=== PATIENT | female | born 1965 | race Caucasian/White ===

== ENCOUNTER 2017-09-20 13:31 | Outpatient (CLI) | payer OTHER | END 2017-09-20 13:32 | disposition home or self-care (01) | LOC: BICMAMMO 13:31 | PROVIDERS: ATTEND Internal Medicine Hematology & Oncology | DX: C50.811 Malignant neoplasm of overlapping sites of right female breast (principal); N64.89 Other specified disorders of breast | CPT/HCPCS: 77066; G0279 ==

== ENCOUNTER 2017-09-23 14:31 | Observation (INO) | payer OTHER ==
[2017-09-23 15:24] LABS: Anion Gap 15 mmol/L (10-20); BUN (Urea Nitrogen) 25 mg/dL (9.8-20.1); Calc. Creatinine Clearance 0 mL/min (70-130); Calcium 8.6 mg/dL (7.8-10.44); Carbon Dioxide 21 mmol/L (22-29); Chloride 105 mmol/L (98-107); Estimated GFR-MDRD 41; Glucose 111 mg/dL (70-105); Potassium 3.8 mmol/L (3.5-5.1); Sodium 137 mmol/L (136-145)
--- NOTE | 2017-09-23 15:29 | PDOC.FPRHP ---
- History of Present Illness Chief Complaint: symptomatic anemia, syncope History of Present Illness: Radha Ascencio is a 52 year old F with a PMH of recently diagnosed breast cancer approximately two weeks ago with lesions in spine and pelvis, Type 2 DM, HTN, HLD who presents as transfer for [place] ED for symptomatic anemia and GI bleeding. Patient had a witnessed episode of syncope today while in [employer], episode witnessed by . No post-ictal state, seizure like activity. Patient had a syncopal episode in august as well. At that time she was found to be anemia. Patient has no family history of colon cancer. For the last month, pt has been having increased fatigue with any exertion. She states that her BMs have been dark but not black. She denies any lamonte blood in her stool or any other bleeding. In [place], Hemoglobin was 7.4 and she was started on 1 U pRBC transfusion and transferred to here. ED Course: In the ED, the patient received protonix and 1 L of NS. Received 1U pRBC at outside facility. - Allergies/Adverse Reactions Allergies Allergy/AdvReac Type Severity Reaction Status Date / Time No Known Allergies Allergy Verified 09/23/17 16:32 - Home Medications Medication Instructions Recorded Confirmed Type Olmesartan/Hydrochlorothiazide 1 tablet PO DAILY 09/23/17 09/23/17 History [Benicar HCT] Rosuvastatin [Crestor] 20 mg PO HS 09/23/17 09/23/17 History metFORMIN HCl [Metformin HCl] 500 mg PO DAILY 09/23/17 09/23/17 History traMADol HCl [Tramadol HCl] 50 mg PO QID PRN 09/23/17 09/23/17 History - History PMHx: T2DM, HTN, HLD PSHx: Hysterectomy, Lumpectomy for fibrocystic disease of right breast FHx: HTN, TX in father Social: Denies alcohol, drug, smoking - Review of Systems General: reports: weight/appetite/sleep changes, fatigue. denies: fever/chills , night sweats Eyes: denies: eye pain, vision changes ENT: denies: nasal congestion, rhinorrhea Respiratory: reports: exercise intolerance. denies: cough, congestion, shortness of breath Cardiovascular: denies: chest pain, palpitation, edema, paroxysmal nocturnal dyspnea, orthopnea Gastrointestinal: reports: abdominal pain, GI bleeding. denies: nausea, vomiting, diarrhea, constipation Genitourinary: denies: incontinence, dysuria, polyuria Skin: denies: rashes, lesions, jaundice Musculoskeletal: denies: pain, tenderness, stiffness Neurological: reports: syncope. denies: numbness, seizure, weakness Psychological: denies: anxiety, depression - Vital signs BP: 142/82 HR: 71 RR: 18 Tmax: 98.2 Pox: 99% on RA Wt: 104 kg - Physical Exam Constitutional: NAD, awake, alert and oriented, well developed HEENT: normocephalic and atraumatic, PERRLA, EOMI, conjunctiva clear, no scleral icterus -HEENT: pale conjunctiva Neck: supple, FROM, trachea midline, no LAD, no JVD Chest: no-tender to palpation, no lesions Heart: RRR, normal S1/S2, no murmurs/rubs/gallops, no edema Lungs: CTAB, no respiratory distress, good air movement, no wheezing Abdomen: soft, non-tender, bowel sounds present, no masses/distention Musculoskeletal: normal structure, normal tone, ROM grossly normal Neurological: no focal deficit, CN II-XII intact, normal sensation Skin: no rash/lesions, good turgor, capillary refill <2 seconds Heme/Lymphatic: no unusual bruising or bleeding, no purpura, no petechia Psychiatric: normal mood and affect, good judgment and insight, intact recent and remote memory FMR H&P: Results - Labs Result Diagrams: 09/23/17 20:44 09/23/17 14:53 Lab results: Sodium 137 mmol/L (136-145) 09/23/17 14:53 Potassium 3.8 mmol/L (3.5-5.1) 09/23/17 14:53 Chloride 105 mmol/L (98-107) 09/23/17 14:53 Carbon Dioxide 21 mmol/L (22-29) L 09/23/17 14:53 BUN 25 mg/dL (9.8-20.1) H 09/23/17 14:53 Creatinine 1.36 mg/dL (0.6-1.1) H 09/23/17 14:53 Glucose 111 mg/dL (70-105) H 09/23/17 14:53 Calcium 8.6 mg/dL (7.8-10.44) 09/23/17 14:53 FMR H&P: A/P - Problem List (1) Chronic GI bleeding Current Visit: Yes Status: Acute Code(s): K92.2 - GASTROINTESTINAL HEMORRHAGE, UNSPECIFIED (2) Symptomatic anemia Current Visit: Yes Status: Acute Code(s): D64.9 - ANEMIA, UNSPECIFIED (3) HTN (hypertension) Current Visit: Yes Status: Acute Code(s): I10 - ESSENTIAL (PRIMARY) HYPERTENSION (4) Diabetes mellitus Current Visit: Yes Status: Acute Code(s): E11.9 - TYPE 2 DIABETES MELLITUS WITHOUT COMPLICATIONS (5) Hyperlipidemia Current Visit: Yes Status: Acute Code(s): E78.5 - HYPERLIPIDEMIA, UNSPECIFIED (6) Breast cancer Current Visit: Yes Status: Acute - Plan 1) Symptomatic Anemia: - Admit to Tele. Patient has history of syncopal episodes. Fall precautions. - S/p 1 U pRBC transfusion, trend H&H q2h until stable. Consult GI. Protonix BID daily. - IVFs, NS @ 145 ml/hr - Holding anticoagulation 2) GI bleed: - Likely chronic - FOBT + - See above 3) DM2: - Hold metformin 2/2 to GLADYS. Sliding scale insulin, accuchecks. 4) GLADYS: vs CKD - IVFs, continue to monitor 5) HTN: - Home meds 6) Hx of breast cancer-diagnosed 2 weeks ago. Will courtesy call Dr. Carrillo's office in the AM. PRN morphine for pain 7) History of syncope: - EKG showed NSR, monitor on tele. 8) CODE STATUS: FULL CODE Disposition/LOS: Admit to Tele, Likely hospital stay 2-3 days. FMR H&P: Upper Level - Plan Date/Time: 09/23/17 1529 Sherley Marshall, PGY3, have evaluated this patient and agree with findings/plan as outlined by legal internship resident. Pertinent changes/additions are listed here. This is a 52yo WF who recently was diagnosed with breast CA w/ possible lesions on spine and pelvis, about 2 weeks, anemia, HTN, HLD, DM2 ago transferred here from [facility] for symptomatic anemia and GI bleed, who initially presented w/ syncope that happened at [employer] today, witnessed by . Unsure how long she was out for. This happened once in August when she was anemic at that time as well. She states that her stools have been darker than normal for the past month, and has noticed that she's progressively been more fatigued, even with routine tasks. She was given Protonix, 1L NS and 1U PRBC in the outside facility. PE: Gen: AOx4 in no acute distress. HEENT: pale conjunctiva, EOMI, no cervical lymphadenopathy CV: RRR. + 2/5 systolic murmur. Resp: CTA bilaterally, no retractions Abd: Soft, non-tender to palpation Skin: Pale, dry, warm A/P: 1) Symptomatic Anemia - trend H&H Q2hr until stable. Consult GI. Protonix BID daily, Maintenance fluids. Will keep patient NPO. Will transfuse if symptomatic and Hg <8 or asymptomatic with Hg < 7. Hold anticoagulation due to bleed. 2) GI Bleed - Same as #1. 3) DM2 - Hold metformin as patient has GLADYS. ISS. Accuchecks 4) HTN - continue home medication. 5) Recent diagnosis of breast Cancer - Will give a courtesy call to Dr. Carrillo' s office in the morning. Morphine PRN pain. 6) Pancytopneia - Likely 2/2 #5. F/u with CBC in am. 7) Syncope - EKG NSR. Will monitor on telemetry. Likely 2/2 #1. 8) GLADYS vs CKD - will f/u with BMP in am after fluids. Avoid nephrotoxic medication Attending Addendum - Attending Addendum Date/Time: 09/23/17 [id number] I personally evaluated the patient and discussed the management with Dr. Rojo. I agree with the History, Examination, Assessment and Plan documented above with any addition or exceptions noted below- Briefly this ia 52 yo WF with h/o HTN, prediabetes and recently diagnosed breast cancer presented after a syncopal episode at [facility]. Evaluated in [facility] and found to be guiac positive and anemic and was transferred for GI bleed. Patient denies any abdominal pain, N/V, melena or hematochezia. Hgb=7.4 transfused 1 u pRBCs. Patient had similar episode in August. Was found to be anemic but did not require any blood and was in the process of an evaluation to include a colonoscopy when the breast cancer was discovered and the evaluation was put on hold. PMH/PSH/Meds/ All/SH reviewed and agree with resident's documentation. Afebrile VSS Physcial exam repeated by me and agree with resident's findings. Labs Hgb= 8.4 plt 82 MCV 93. A/P: 1) Syncope secondary to symptomatic anemia- continue to monitor. Ambulate with assistance. 2) Anemia- probable GI source- serial H/Hs. Plan to consult GI. Continue PPI. 3) Breast cancer- will notify pt' s oncologist of her admission.
[2017-09-23] MEDS ORDERED: Acetaminophen 325 MG TAB PO PRN (15:46)
[2017-09-23] MEDS ORDERED: Ondansetron HCl/PF 4 MG/2 ML Vial IVP PRN (15:46)
[2017-09-23 15:47] LABS: Anisocytosis SLIGHT = 6-15 cells (100X) (0-5/hpf); Band 3 % (5-11); Hemoglobin 8.1 g/dL (12.0-16.0); Lymphocytes 39 % (21-51); MDiff Complete? YES; Mean Corpuscular HGB CONC 34.2 g/dL (32.0-36.0); Mean Corpuscular Hemoglobin 31.7 pg (27.0-31.0); Mean Corpuscular Volume 92.9 fl (81.0-99.0); Mean Platelet Volume 8.6 fL (7.4-10.4); Monocytes 4 % (0-10); Neutrophil 53 % (42-75); PLT Morphology Comment Appears Decreased; Platelet Count 87 thou/uL (130-400); RBC Distribution Width 15.5 % (11.5-14.5); Red Blood Cell (RBC) Count 2.56 mill/uL (4.20-5.40); White Blood Cell (WBC) Count 4.1 thou/uL (4.8-10.8)
[2017-09-23 16:18] VITALS: BMI 39.9
[2017-09-23] MEDS: Sodium Chloride 0.9% 1,000 ML IV SCH ×2 (16:30→23:38)
[2017-09-23] MEDS ORDERED: Morphine 4 MG/ML VIAL SLOW IVP PRN (16:39)
[2017-09-23] MEDS ORDERED: Labetalol HCl 100 MG/20 ML VIAL SLOW IVP PRN (16:58)
[2017-09-23 17:29] LABS: Hemoglobin 8.9 g/dL (12.0-16.0); Platelet Count 85 thou/uL (130-400)
[2017-09-23 18:27] LABS: INR-International Normal Ratio 1.1; PTT 26.4 SEC (22.9-36.1); Prothrombin Time 14.6 SEC (12.0-14.7)
[2017-09-23] MEDS: Pantoprazole 40 MG VIAL IVP SCH (20:46)
[2017-09-23 21:00] LABS: Hemoglobin 8.4 g/dL (12.0-16.0); Platelet Count 82 thou/uL (130-400)
[2017-09-24 05:45] LABS: Anion Gap 13 mmol/L (10-20); BUN (Urea Nitrogen) 16 mg/dL (9.8-20.1); Calc. Creatinine Clearance 96 mL/min (70-130); Carbon Dioxide 22 mmol/L (22-29); Chloride 106 mmol/L (98-107); Estimated GFR-MDRD 51; Glucose 92 mg/dL (70-105); Potassium 3.1 mmol/L (3.5-5.1); Sodium 138 mmol/L (136-145)
[2017-09-24] MEDS: Sodium Chloride 0.9% 1,000 ML IV SCH ×2 (05:53→13:25)
[2017-09-24 06:06] LABS: #Basophils 0.1 thou/uL (0.0-0.2); #Eosinphils 0.1 thou/uL (0.0-0.7); #Lymphocytes 1.5 thou/uL (1.20-3.40); #Monocytes 0.6 thou/uL (0.11-0.59); #Neutrophils 2.2 thou/uL (1.40-6.50); %Basophils 1.5 % (0.0-1.0); %Eosinophils 2.8 % (0.0-10.0); %Lymphocytes 33.2 % (21.0-51.0); %Monocytes 12.4 % (0.0-10.0); Anisocytosis SLIGHT = 6-15 cells (100X) (0-5/hpf); MDiff Complete? YES; Mean Corpuscular HGB CONC 35.8 g/dL (32.0-36.0); Mean Corpuscular Hemoglobin 33.3 pg (27.0-31.0); Mean Corpuscular Volume 93.2 fl (81.0-99.0); Mean Platelet Volume 8.8 fL (7.4-10.4); Platelet Count 83 thou/uL (130-400); Polychromasia SLIGHT = 2-3 cells (100X) (0-2/hpf); RBC Distribution Width 15.7 % (11.5-14.5); Tear Drops SLIGHT = 2-5 cells (100X) (0-1/hpf); White Blood Cell (WBC) Count 4.4 thou/uL (4.8-10.8)
[2017-09-24] MEDS ORDERED: Pantoprazole 40 MG VIAL IVP SCH (09:00)
[2017-09-24] MEDS: Pantoprazole 40 MG VIAL IVP SCH ×2 (09:13→21:08)
--- NOTE | 2017-09-24 09:23 | PDOC.FM ---
- Subjective Subjective: Pt reports doing well this morning. Denies any dizziness, lightheadness or headaches. Has gotten up and went to the bathroom multiple times and had no problems. Pt denies any fever or chills. Denies any acute events overnight. Concerned because she had an appointment with Dr. Carrillo for breast cancer today. No chest pain. Pt reports last BM was yesterday and only ate cheerios. - Objective MAR Reviewed: Yes Vital Signs & Weight: Vital Signs (12 hours) Temp Pulse Resp BP Pulse Ox 09/24/17 07:31 98.2 F 75 18 122/64 99 09/24/17 03:53 98.2 F 74 18 128/69 98 Weight Weight 105.506 kg I&O: 09/23/17 09/24/17 09/25/17 06:59 06:59 06:59 Intake Total 2201 Output Total 1400 Balance 801 Result Diagrams: 09/24/17 04:29 09/24/17 04:29 EKG Reviewed by me: Yes Phys Exam - Physical Examination Constitutional: NAD HEENT: PERRLA, moist MMs, sclera anicteric Neck: no nodes, no JVD, supple, full ROM Respiratory: no wheezing, no rales, no rhonchi, clear to auscultation bilateral Cardiovascular: RRR, no rub systolic murmur noted Gastrointestinal: soft, non-tender, no distention, positive bowel sounds Musculoskeletal: no edema, pulses present Neurological: non-focal, normal sensation, moves all 4 limbs Lymphatic: no nodes Psychiatric: normal affect, A&O x 3 Skin: no rash, normal turgor, cap refill <2 seconds Dx/Plan (1) Breast cancer Status: Acute (2) Chronic GI bleeding Code(s): K92.2 - GASTROINTESTINAL HEMORRHAGE, UNSPECIFIED Status: Acute (3) Diabetes mellitus Code(s): E11.9 - TYPE 2 DIABETES MELLITUS WITHOUT COMPLICATIONS Status: Acute (4) HTN (hypertension) Code(s): I10 - ESSENTIAL (PRIMARY) HYPERTENSION Status: Acute (5) Hyperlipidemia Code(s): E78.5 - HYPERLIPIDEMIA, UNSPECIFIED Status: Acute (6) Symptomatic anemia Code(s): D64.9 - ANEMIA, UNSPECIFIED Status: Acute - Plan Plan: 1) Symptomatic Anemia likely 2/2 GI bleed Patient has history of syncopal episodes. Fall precautions. - S/p 1 U pRBC transfusion yesterday. Will check Hemagram later today . Consult GI- Dr. Fairchild- will follow recs . Protonix BID daily. - IVFs, NS @ 145 ml/hr. NPO at this time - Holding anticoagulation 2) GI bleed: - Likely chronic - FOBT + - See above 3) DM2: - Hold metformin 2/2 to GLADYS. Sliding scale insulin, accuchecks. 4) GLADYS: vs CKD - IVFs, continue to monitor -Likely 2/2 to volume loss from blood laoss 5) HTN: - Home meds 6) Hx of breast cancer-diagnosed 2 weeks ago. Consult Oncology- Dr. Carrillo- Will follow recs PRN morphine for pain 7) History of syncope: - EKG showed NSR, monitor on tele.
--- NOTE | 2017-09-24 12:14 | ADD-HP ---
DATE OF SERVICE: 09/24/2017 This is an addendum to the note of Dr. Cheikh Austin. HISTORY OF PRESENT ILLNESS: Ms. Thacker is a pleasant 52-year-old white female patient who unfortunate ly was found recently to have metastatic breast cancer. She had a syncopal episode yesterday while a t [employer] and was found to have a hemoglobin level of 7.4. She does give a history of either very mehnaz k stools or black tarry stools. She was admitted and transfused 1 unit of packed red blood cells wit h a hemoglobin this morning of 8.0. We will continue to monitor her closely and we have already consulted GI. She will likely need at le ast an upper GI endoscopy and possibly later a colonoscopy given her anemia and symptoms, although th silver could be at least in part due to her metastatic disease.
[2017-09-24] MEDS ORDERED: Potassium Chloride 40 MEQ in Sodium Chloride 0.9% 250 ML 250 ML IVPB SCH (12:30)
[2017-09-24 13:38] LABS: Anisocytosis SLIGHT = 6-15 cells (100X) (0-5/hpf); Band 9 % (5-11); Hemoglobin 7.7 g/dL (12.0-16.0); Lymphocytes 11 % (21-51); MDiff Complete? YES; Mean Corpuscular HGB CONC 34.4 g/dL (32.0-36.0); Mean Corpuscular Hemoglobin 30.8 pg (27.0-31.0); Mean Corpuscular Volume 89.4 fl (81.0-99.0); Mean Platelet Volume 8.3 fL (7.4-10.4); Monocytes 6 % (0-10); Neutrophil 70 % (42-75); PLT Morphology Comment Appears Decreased; Platelet Count 81 thou/uL (130-400); Polychromasia SLIGHT = 2-3 cells (100X) (0-2/hpf); RBC Distribution Width 15.6 % (11.5-14.5); Reactive Lymphocytes 2 % (0-10); Red Blood Cell (RBC) Count 2.51 mill/uL (4.20-5.40); White Blood Cell (WBC) Count 4.1 thou/uL (4.8-10.8)
--- NOTE | 2017-09-24 13:54 | CON ---
DATE OF CONSULTATION: 09/24/2017 REQUESTING PHYSICIAN: Dr. Austin. REASON FOR CONSULTATION: Anemia and heme-positive stool. HISTORY OF PRESENT ILLNESS: Radha Ascencio is a 52-year-old woman, who was admitted to the hospital yes terday after a syncopal episode. She has a past history significant for diabetes and hypertension an d hysterectomy, but has had an eventful past few weeks. In mid August, she had a syncopal episode, an d on workup was found to have significant anemia. This was evidently a big decline from a year prior in her blood counts. She was going to have some endoscopic workup in [place], but this was deferred . On further workup, she was found to have a left-sided breast cancer, and this is biopsy proven. E vidently imaging has suggested skeletal lesions involving the spine and the pelvis, and further huang p is ongoing with PET scan planned for later this week. She has seen Dr. Carrillo in consultation [facility]. Yesterday, at [facility], the patient had another syncopal episode and she was found to have a hem oglobin of 7.1 in [place]. She was given 1 unit RBC transfusion and transferred here for further car e including GI workup. Hemoglobin came up about 1 point and this morning is stable at 8.0. FOBT was positive. Through all this, the patient denies any overt bleeding from anywhere. She denies any me merry. Sometimes stools are a little dark, but not black. Occasionally, she will have a small streak of red blood on the toilet paper after a bowel movement, but nothing more than this. Her bowel habi ts are essentially normal. Her appetite is not great, but there has been no vomiting, no significant abdominal pain. She has never undergone EGD or colonoscopy, and there is no family history of GI ma lignancy. I do not see iron studies, B12, or folate levels, though these may have been done in [facility] am prior to her transfer here. She denies any NSAID use and does not take any acid suppression. REVIEW OF SYSTEMS: Full review of systems including constitutional, head, eyes, ears, nose, throat, GI, , cardiovascular, respiratory, musculoskeletal, and neurologic systems is negative except as no heydi in HPI. PAST MEDICAL HISTORY: 1. Left-sided breast cancer, invasive lobular carcinoma, diagnosed a couple of weeks ago, possibly m etastatic to spine and pelvis. 2. Diabetes. 3. Hypertension. 4. Hyperlipidemia. 5. Hysterectomy. OUTPATIENT MEDICATIONS: Tramadol, metformin, Crestor, Benicar. INPATIENT MEDICATION: Protonix 40 mg IV b.i.d. FAMILY HISTORY: Negative for colon cancer. Her father had an MD. SOCIAL HISTORY: No smoking, alcohol, or drug use. PHYSICAL EXAMINATION: VITAL SIGNS: Temperature 98.2, pulse 75, blood pressure 122/64, 99% oxygen saturation on room air. GENERAL: A 52-year-old woman lying in bed comfortably in no distress. SKIN: She is a bit pale with no jaundice, no rash visible or palpable. EYES: No scleral icterus. Extraocular movements intact. ENT: Mucous membranes moist, no oral lesions. LYMPH: No submandibular or supraclavicular lymphadenopathy. THYROID: Nontender to palpation. HEART: Regular rate and rhythm. LUNGS: Clear to auscultation bilaterally. ABDOMEN: Soft, nontender to palpation. EXTREMITIES: No peripheral edema. VESSELS: Radial pulses 2+ bilaterally. NEUROLOGICAL: Cranial nerves II-XII intact bilaterally. No focal deficits. LABORATORY STUDIES: FOBT evidently positive in [place]. WBC 4.4, hemoglobin 8.0, MCV normal at 93.2 , platelets 83. Sodium 138, potassium 3.1, BUN 16, creatinine 1.12, glucose 113. INR normal at 1.1. ASSESSMENT AND PLAN: 1. Symptomatic anemia, normocytic. 2. Pancytopenia. 3. Heme-positive stool. 4. Recently diagnosed left-sided breast cancer, possibly metastatic. I discussed with the patient that it is unclear whether her cytopenias are directly related to her ma lignancy or not. Certainly, she has had a significant decline in hemoglobin over the past year, with no overt evidence of bleeding, but heme-positive stool. This certainly does deserve endoscopic inve stigation. We will plan for EGD and colonoscopy tomorrow after bowel preparation tonight. In the me antime, I agree with the IV Protonix b.i.d. We will also order iron studies, B12 and folic acid leve ls to be drawn with tomorrow morning's labs. I understand Oncology inpatient consultation has also b een requested. Thank you for the consultation. Please call any time with questions or concerns.
[2017-09-24 15:22] LABS: Mean Corpuscular HGB CONC 34.2 g/dL (32.0-36.0); Mean Corpuscular Hemoglobin 31.4 pg (27.0-31.0); Mean Corpuscular Volume 91.8 fl (81.0-99.0); Mean Platelet Volume 8.9 fL (7.4-10.4); Platelet Count 85 thou/uL (130-400); RBC Distribution Width 15.6 % (11.5-14.5); Red Blood Cell (RBC) Count 2.56 mill/uL (4.20-5.40); White Blood Cell (WBC) Count 4.7 thou/uL (4.8-10.8)
--- NOTE | 2017-09-24 17:11 | CON ---
DATE OF CONSULTATION: 09/24/2017 REASON FOR CONSULTATION: Breast cancer. HISTORY OF PRESENT ILLNESS: Ms. Ascencio is a 52-year-old female, who was admitted on this [facility] for a syncopal episode. She passed out at her [employer] and presented to the [facility], where she was noted to have hemoglobin of 7.4. She was transfused 1 unit and sent to this facility for further evaluation. The patient has a recent diagnosis of invasive lobular carcinoma of the left breast. S he had 1 of 1 positive lymph nodes. She is ER/IL positive, HER-2 negative. She was diagnosed after her first syncopal episode at a family event. She was referred to a surgeon for colonoscopy and on the surgeon found a breast mass over the left breast, which was biopsied and positive for lobular carcinoma. The colonoscopy was not done. The patient has never had a mammogram nor colonoscopy in the past. She saw Dr. Carrillo on 09/14/2017 and was noted to have mildly elevated calcium. There wa s concern of bone mets on a prior bone scan, so she was treated with Zometa on , 09/20/2017. She was to see Dr. Carrillo today to discuss treatment of her breast cancer, but unfortunately was ad mitted for a syncopal episode. Currently, she denies any chest pain or shortness of breath. No jenaro tochezia, melena or hemoptysis. She has been seen by GI and plan is for endoscopy tomorrow. PAST MEDICAL HISTORY: 1. Hypertension. 2. Hyperlipidemia. 3. Osteoarthritis. 4. Anemia. PAST SURGICAL HISTORY: 1. Hysterectomy. 2. Fiber cyst from the left breast, removed. 3. Left breast and axillary lymph node biopsy. ALLERGIES: No known drug allergies. HOME MEDICATIONS: 1. Aspirin 81 mg daily. 2. Benadryl 25 mg b.i.d. 3. Metformin 500 mg daily. 4. Olmesartan and hydrochlorothiazide daily. 4. Rosuvastatin 20 mg daily. 5. Tramadol p.r.n. FAMILY HISTORY: Hypertension. SOCIAL HISTORY: , has 2 children, lives with her spouse. No alcohol, tobacco or illicit drug use. REVIEW OF SYSTEMS: Twelve point review of systems is negative. PHYSICAL EXAMINATION: VITAL SIGNS: Temperature is 98.0, pulse is 73, respiratory rate is 18, and blood pressure is 132/80. She is 98% on room air. GENERAL: Well-developed, well-nourished female, in no acute distress. HEENT: Normocephalic, atraumatic. Pupils are equal and reactive to light. NECK: Supple. CARDIOVASCULAR: Regular rate and rhythm. LUNGS: Clear. ABDOMEN: Soft, nontender, bowel sounds are positive. EXTREMITIES: No clubbing, cyanosis or edema. SKIN: No rash. BREASTS: Her left breast with a 4 cm palpable lesion of the upper outer quadrant with palpable left axillary lymphadenopathy. NEUROLOGIC: Nonfocal. PSYCHIATRIC: The patient is alert, oriented and appropriate. PERTINENT LABORATORY AND X-RAYS: Current WBCs are 4.7, hemoglobin 8, hematocrit 23.5, platelet count 85,000. She has got 70% neutrophils, 11% lymphocytes. Sodium is 138, potassium is 3.1, chloride is 106, CO2 is 22, BUN is 16, creatinine is 1.12, calcium is 8, total bilirubin is 0.4, AST is 30, ALT is 15, and alkaline phosphatase is 147. Serum total protein is 7.4, albumin is 4.4, and globulin is 3. ASSESSMENT: 1. Metastatic breast cancer. 2. Normocytic anemia likely secondary to metastatic breast cancer. DISCUSSION: The patient has never had a colonoscopy and the plan is to perform one tomorrow. Her CB C is stable and hemoglobin of 8. We will follow her CBC daily. She was due to begin treatment today , so she will have to follow up in the outpatient setting to begin treatment. Thank you for the consult. We will follow her hospital course closely.
[2017-09-24] MEDS ORDERED: GoLYTELY 4,000 ml Bottle PO SCH (18:00)
[2017-09-25] MEDS: Sodium Chloride 0.9% 1,000 ML IV SCH ×3 (03:06→09:56)
[2017-09-25 06:45] LABS: Anion Gap 13 mmol/L (10-20); BUN (Urea Nitrogen) 10 mg/dL (9.8-20.1); Calc. Creatinine Clearance 112 mL/min (70-130); Carbon Dioxide 21 mmol/L (22-29); Chloride 109 mmol/L (98-107); Estimated GFR-MDRD 61; Glucose 89 mg/dL (70-105); Iron 76 ug/dL (50-170); Iron Binding Capacity, Total 254 mcg/dL (265-497); Potassium 3.2 mmol/L (3.5-5.1); Sodium 140 mmol/L (136-145)
--- NOTE | 2017-09-25 06:46 | PDOC.FM ---
- Subjective Subjective: Pt reports doing well this morning. Has gotten up and moved around. Denies any dizziness, lightheadness or feeling like going to pass out. Denies any chest pain or SOB. Pt reports bowel movements have been normal and have not noticed blood at this time. No acute events overnight. No other concerns at this time. - Objective MAR Reviewed: Yes Vital Signs & Weight: Vital Signs (12 hours) Temp Pulse Resp BP Pulse Ox 09/25/17 00:06 97.2 F L 73 16 132/81 100 09/24/17 20:00 98.8 F 74 16 09/24/17 19:23 98.8 F 74 16 142/88 H Weight Weight 105.506 kg I&O: 09/23/17 09/24/17 09/25/17 06:59 06:59 06:59 Intake Total 2201 1869 Output Total 1400 1300 Balance 801 569 Result Diagrams: 09/25/17 05:14 09/25/17 05:14 EKG Reviewed by me: Yes Phys Exam - Physical Examination Constitutional: NAD HEENT: PERRLA, moist MMs Neck: no nodes, no JVD, supple, full ROM Respiratory: no wheezing, no rales, no rhonchi, clear to auscultation bilateral Cardiovascular: RRR, no significant murmur, no rub Gastrointestinal: soft, non-tender, no distention, positive bowel sounds Musculoskeletal: no edema, pulses present Neurological: non-focal, normal sensation, moves all 4 limbs Lymphatic: no nodes Psychiatric: normal affect, A&O x 3 Skin: no rash, normal turgor, cap refill <2 seconds Dx/Plan (1) Breast cancer Status: Acute (2) Chronic GI bleeding Code(s): K92.2 - GASTROINTESTINAL HEMORRHAGE, UNSPECIFIED Status: Acute (3) Diabetes mellitus Code(s): E11.9 - TYPE 2 DIABETES MELLITUS WITHOUT COMPLICATIONS Status: Acute (4) HTN (hypertension) Code(s): I10 - ESSENTIAL (PRIMARY) HYPERTENSION Status: Acute (5) Hyperlipidemia Code(s): E78.5 - HYPERLIPIDEMIA, UNSPECIFIED Status: Acute (6) Symptomatic anemia Code(s): D64.9 - ANEMIA, UNSPECIFIED Status: Acute - Plan Plan: 1) Symptomatic Anemia likely 2/2 cancer in the bone vs GI Bleed Patient has history of syncopal episodes. Fall precautions. - S/p 1 U pRBC transfusion a few days ago. . Consult GI- Dr. Fairchild- will follow recs Plan for EGD and Colonoscopy today. Dr. Carrillo- Onc consulted- follow recs -Will get bone scan. Will give shot for anemia today and wants her to go to office after discharge for hormone therapy . Protonix BID daily. - IVFs, NS @ 145 ml/hr. NPO at this time - Holding anticoagulation - 2) GI bleed: - Likely chronic - FOBT + - See above 3) DM2: - Hold metformin 2/2 to GLADYS. Sliding scale insulin, accuchecks. 4) GLADYS: vs CKD - IVFs, continue to monitor -Likely 2/2 to volume loss from blood loss 5) HTN: - Home meds 6) Hx of breast cancer-diagnosed 2 weeks ago. Consult Oncology- Dr. Carrillo- Will follow recs. Will need to f/u outpatient to begin tx. PRN morphine for pain -get bone scan while here. 7) History of syncope: -likely 2/2 to anemia and blood loss. See above for plan
[2017-09-25 06:50] LABS: Band 17 % (5-11); Eosinophils 3 % (0-10); Hemoglobin 7.7 g/dL (12.0-16.0); Lymphocytes 30 % (21-51); MDiff Complete? YES; Mean Corpuscular HGB CONC 35.1 g/dL (32.0-36.0); Mean Corpuscular Hemoglobin 32.5 pg (27.0-31.0); Mean Corpuscular Volume 92.6 fl (81.0-99.0); Metamyelocyte 3 % (0-0); Monocytes 6 % (0-10); Myelocyte 9 % (0-0); Neutrophil 32 % (42-75); Nucleated RBC 6 % (0); PLT Morphology Comment Appears Decreased; Platelet Count 78 thou/uL (130-400); RBC Distribution Width 15.7 % (11.5-14.5); Red Blood Cell (RBC) Count 2.37 mill/uL (4.20-5.40); White Blood Cell (WBC) Count 4.3 thou/uL (4.8-10.8)
[2017-09-25 06:53] LABS: Folate (Folic Acid) 12.4 ng/mL (7.0-31.4)
[2017-09-25] MEDS ORDERED: Potassium Chloride 40 MEQ, Admixture Fee 1 EACH in Sodium Chloride 0.9% 250 ML 250 ML IVPB SCH (08:45)
[2017-09-25] MEDS ORDERED: Potassium Chloride 40 MEQ in Premix Bag 1 BAG IVPB SCH (08:45)
[2017-09-25] MEDS: Pantoprazole 40 MG VIAL IVP SCH (09:56)
--- NOTE | 2017-09-25 11:37 | ADD-PRG ---
DATE OF SERVICE: 09/25/2017 ADDENDUM Please add this as an addendum to the note of Dr. Cheikh Austin. Mr. Ascencio is resting comfortably, a waiting her colonoscopy. Her anemia studies are so far consistent with anemia of chronic disease, li tobin her metastatic breast cancer. Given, however, that she has a history of possible rectal bleedin g and melena, she will undergo colonoscopy later today. Depending on findings, she can be discharged afterwards to continue following with her oncologist.
[2017-09-25] MEDS ORDERED: Promethazine HCl 25 MG/ML VIAL SLOW IVP PRN (13:10)
[2017-09-25] MEDS ORDERED: Promethazine HCl 25 MG/ML VIAL IM PRN (13:10)
[2017-09-25] MEDS ORDERED: Ondansetron HCl/PF 4 MG/2 ML Vial IVP PRN (13:10)
[2017-09-25 15:40] VITALS: BP 124/74; TEMP 98.1
[2017-09-25] MEDS ORDERED: PROPOFOL 200 MG/20 ML VIAL ONE (16:42)
[2017-09-25] MEDS ORDERED: Lidocaine 1% PF 5 ML VIAL ONE (16:42)
--- NOTE | 2017-09-25 19:52 | OP ---
PREOPERATIVE DIAGNOSES: 1. Anemia. 2. Metastatic breast cancer 3. Reported heme-positive stool. POSTOPERATIVE DIAGNOSES: 1. Normal esophagogastroduodenoscopy. 2. Colonoscopy with 5 polyps scattered between the ascending colon and sigmoid ranging in size from 2-7 mm in size, all sessile to semi pedunculated, removed by hot snare polypectomy. RECOMMENDATIONS: Monitor H and H, transfuse if necessary. If there are signs of acute bleeding, ble eding scan would be the next step, although there is no evidence of bleeding sites identified. We wo uld consider pancytopenia would be related to her malignancy, most likely. PROCEDURE IN DETAIL: After the patient was informed of the risks, benefits, possible complications o f endoscopy including perforation, bleeding, reactions to medication and aspiration, informed consent was obtained. The patient was brought to endoscopy suite where she was prepared in routine fashion. Once she was comfortable, a bite block was placed in incisural orifice. The endoscope was advanced through the esophagus, stomach and second and third portion of duodenum and slowly removed. There w as good visualization of mucosa. There were no abnormalities in the stomach, esophagus, or duodenum. Retroflexed views in the stomach were normal. The scope was then used to desufflate the stomach an d the scope was removed. The patient was turned in the room. A rectal examination was performed. T he endoscope was advanced to the anal to the colon to the cecum which was identified by the ileocecal valve and appendiceal orifice. The prep was very good. The scope was slowly removed. There was go od visualization of mucosa. There were no masses, lesions or AV malformations identified. There wer e 5 polyps scattered throughout the colon ranging in size from 2-7 mm in size, sessile to semi-pedunc ulated, there was no other active bleeding. These all appeared benign. They removed by hot snare po lypectomy and submitted to Pathology. Retroflexed views in the rectum were normal. The scope was re moved. The patient tolerated the procedure well and there were no complications.
--- NOTE | 2017-09-26 13:36 | DIS-2 ---
DATE OF ADMISSION: 09/23/2017 DATE OF DISCHARGE: 09/26/2017 ADMITTING ATTENDING: Nimisha Salas M.D. DISCHARGE ATTENDING: Benji Traore MD CONSULTATIONS: Include Oncology, Avis Carrillo M.D. and GI both Samy Fairchild MD and Mathieu benitez M.D. IMAGING: No imaging was done. DIAGNOSES: 1. Symptomatic anemia, likely secondary to cancer in the bone. 2. Breast cancer. 3. Gastrointestinal bleed. 4. Diabetes mellitus type 2. 5. Acute kidney injury on chronic kidney disease. 6. Hypertension. 7. History of syncope. DISCHARGE MEDICATIONS: Include metformin 500 mg p.o. daily, Benicar 1 tablet p.o. daily, Crestor 20 mg p.o. at bedtime and tramadol 50 mg p.o. q.i.d. HISTORY OF PRESENT ILLNESS AND BRIEF HOSPITAL COURSE: This is a 52-year-old with a past medical hist ory of recently diagnosed breast cancer with lesions in the spine and pelvis, type 2 diabetes, hypert ension, hyperlipidemia who came in after [place], her he moglobin was 7.4 and they gave her 1 unit of packed red blood cells. The patient's FOBT was positive . When she got here, her hemoglobin was 8.1. We would follow up the next few days, would stay stabl e around 8. Her PT, INR and PT were all normal. Her chemistry showed a creatinine of 1.36. We did give her some fluids and it would drop to 1.1-0.96 respectively. At this time too we checked her iro n, TIBC and ferritin. Her ferritin was high of 1093. Iron was normal and TIBC was low showing anemi a of chronic disease picture. We also got estradiol levels, FSH and luteinizing hormones per Dr. Veronica martin's recs for the breast cancer. Estradiol was 24, FSH was 22.9, 8.71. At this time, we con sulted GI with FOBT. They would do a colonoscopy and EGD, which would show no areas of bleeding. Th ere were 5 polyps of sessile, which she would get biopsies. Biopsies show hyperplastic polyp and tub ular adenoma. At this time after Dr. Carrillo likely thought that the anemia was due to the met astasis to the bone, affecting the bone marrow causing decreased hemoglobin. At this time, we talked with the patient. Her vitals would stay stable, blood pressure remained high while she was here, pu lse was normal. At this time, we discharged her home with plans to start chemotherapy per Dr. Alvarado meng outside the office. The patient ever since she got here had no episodes of syncope, did well, got up, moved around, never had any other troubles. No signs of bleeding. DISPOSITION: Stable. DISCHARGE LOCATION: Home. ACTIVITY: As tolerated. DIET: Regular diet. FOLLOWUP: Will need to follow up with her primary care doctor within 14 days for hospital followup a nd will need to follow up with Dr. Carrillo as routinely scheduled for treatment of her cancer.
== END 2017-09-25 16:53 | disposition home or self-care (01) ==
LOC: ERS 14:31 → 2SW 14:59
PROVIDERS: ADMIT Family Medicine; ATTEND Family Medicine
PROC: 0DBE8ZX Excision of Large Intestine, Via Natural or Artificial Opening Endoscopic, Diagnostic (ICD-10-PCS; principal; 2017-09-25)
DX: D64.9 Anemia, unspecified (principal); D12.5 Benign neoplasm of sigmoid colon; K63.5 Polyp of colon; E78.5 Hyperlipidemia, unspecified; C50.912 Malignant neoplasm of unspecified site of left female breast; C79.51 Secondary malignant neoplasm of bone; D63.0 Anemia in neoplastic disease; R19.5 Other fecal abnormalities; D61.818 Other pancytopenia; M19.90 Unspecified osteoarthritis, unspecified site; I12.9 Hypertensive chronic kidney disease with stage 1 through stage 4 chronic kidney disease, or unspecified chronic kidney disease; E11.22 Type 2 diabetes mellitus with diabetic chronic kidney disease; N18.9 Chronic kidney disease, unspecified; N17.9 Acute kidney failure, unspecified; K92.2 Gastrointestinal hemorrhage, unspecified; Z17.0 Estrogen receptor positive status [ER+]; Z79.82 Long term (current) use of aspirin; Z79.84 Long term (current) use of oral hypoglycemic drugs; Z79.899 Other long term (current) drug therapy
CPT/HCPCS: 36415; 36416; 80048; 82607; 82670; 82728; 82746; 83001; 83002; 83540; 83550; 85025; 85060; 85610; 85730; 88305; 93005; 96361; 96365; 96366; 96375; 96376; A4216; C9113; G0378; J2001; J2704; J3480; J7050

== ENCOUNTER 2017-10-27 09:34 | Day surgery (SDC) | payer OTHER ==
[2017-10-27] MEDS ORDERED: Acetaminophen 500 MG TAB PO SCH (10:00)
[2017-10-27] MEDS ORDERED: diphenhydrAMINE 25 MG CAP PO SCH (10:00)
[2017-10-27 15:03] LABS: Hemoglobin 7.5 g/dL (12.0-16.0); Mean Corpuscular HGB CONC 35.3 g/dL (32.0-36.0); Mean Corpuscular Hemoglobin 32.9 pg (27.0-31.0); Mean Corpuscular Volume 93.1 fl (81.0-99.0); Platelet Count 106 thou/uL (130-400); RBC Distribution Width 17.1 % (11.5-14.5); Red Blood Cell (RBC) Count 2.29 mill/uL (4.20-5.40)
[2017-10-27 15:09] LABS: Band 17 % (5-11); Lymphocytes 60 % (21-51); MDiff Complete? YES; Monocytes 2 % (0-10); Myelocyte 1 % (0-0); Neutrophil 17 % (42-75); Nucleated RBC 1 % (0); Ovalocytes SLIGHT = 2-5 cells (100X) (0-1/hpf); PLT Morphology Comment Appears Decreased; Polychromasia SLIGHT = 2-3 cells (100X) (0-2/hpf); Reactive Lymphocytes 1 % (0-10); Tear Drops SLIGHT = 2-5 cells (100X) (0-1/hpf); White Blood Cell (WBC) Count 2.2 thou/uL (4.8-10.8)
[2017-10-27 17:59] VITALS: BP 119/70; TEMP 98.1
[2017-10-27 18:29] LABS: Hemoglobin 10.1 g/dL (12.0-16.0); Mean Corpuscular HGB CONC 34.7 g/dL (32.0-36.0); Mean Corpuscular Hemoglobin 32.1 pg (27.0-31.0); Mean Corpuscular Volume 92.6 fl (81.0-99.0); Mean Platelet Volume 9.3 fL (7.4-10.4); Platelet Count 83 thou/uL (130-400); RBC Distribution Width 16.1 % (11.5-14.5); Red Blood Cell (RBC) Count 3.15 mill/uL (4.20-5.40); White Blood Cell (WBC) Count 2.9 thou/uL (4.8-10.8)
[2017-10-27 18:40] LABS: Anisocytosis SLIGHT = 6-15 cells (100X) (0-5/hpf); Band 8 % (5-11); Eosinophils 2 % (0-10); Lymphocytes 68 % (21-51); MDiff Complete? YES; Monocytes 1 % (0-10); Neutrophil 19 % (42-75); Nucleated RBC 4 % (0); Ovalocytes SLIGHT = 2-5 cells (100X) (0-1/hpf); PLT Morphology Comment Appears Decreased; Polychromasia SLIGHT = 2-3 cells (100X) (0-2/hpf); Reactive Lymphocytes 1 % (0-10); Tear Drops SLIGHT = 2-5 cells (100X) (0-1/hpf)
== END 2017-10-27 18:23 | disposition home or self-care (01) ==
LOC: ONC/OP 09:34
PROVIDERS: ATTEND Internal Medicine Hematology & Oncology
PROC: 30233N1 Transfusion of Nonautologous Red Blood Cells into Peripheral Vein, Percutaneous Approach (ICD-10-PCS; principal; 2017-10-27)
DX: C50.919 Malignant neoplasm of unspecified site of unspecified female breast (principal); C79.51 Secondary malignant neoplasm of bone; D63.0 Anemia in neoplastic disease
CPT/HCPCS: 36415; 36430; 85025; 86850; 86900; 86901; P9016

== ENCOUNTER 2018-11-15 08:42 | Outpatient (CLI) | payer OTHER ==
--- NOTE | 2018-11-15 10:09 | CT ---
CT Chest Abd Pelvis W Con History: [Breast cancer. Bone cancer. Left breast cancer August 2017.] Comparison: CT chest 2018. Findings: Lungs are clear. No pneumothorax. No effusion. No suspicious pulmonary nodule. Partially vi sualized thyroid is unremarkable. No pericardial effusion. No mediastinal adenopathy. No significant axillary adenopathy. No internal mammary adenopathy. Diffuse hepatic steatosis. Spleen is unremarkable. Pancreas is unremarkable. No hydronephrosis. Liver is enlarged. Adrenal glands are unremarkable. No free intraperitoneal gas or fluid. No dilated loops of large or small bowel. There is diffuse sclerosis likely partial healing of the osseous metastatic disease which on the prio r examination and more of a lytic component. There is complete involvement of the visualized axial skeleton. No pathologic fracture is appreciated. Chronic appearing anterior superior endplate height loss at T12 and L1. No retropulsion. Impression: Progressive sclerosis from osseous metastatic disease likely healing. No evidence for sof t tissue metastasis within the chest, abdomen, or pelvis.
--- NOTE | 2018-11-15 13:54 | NM ---
NM Bone Scan STANDARD: 11/15/2018 9:20 AM CLINICAL INDICATION: Breast cancer. COMPARISON: Outside, comparison bone scan imaging 10/04/2017 RADIOPHARMACEUTICAL: 31 mCi technetium 99m MDP FINDINGS: Bone lesions: There is diffuse uptake of the lower thoracic and upper lumbar spine. Mild increased sc intigraphic activity is seen within multiple anterior ribs, bilaterally. There is mild increased scintigraphic activity of the calvarium, bilaterally. Other findings: Degenerative activity is present at the axial and appendicular skeleton. IMPRESSION: Scintigraphic evidence of osseous metastatic disease, which has decreased in intensity from compariso n exam.
== END 2018-11-15 08:43 | disposition home or self-care (01) ==
LOC: CT 08:42
PROVIDERS: ATTEND Internal Medicine Hematology & Oncology
DX: C50.612 Malignant neoplasm of axillary tail of left female breast (principal); C79.51 Secondary malignant neoplasm of bone
CPT/HCPCS: 71260; 74177; 78306; A9503

== ENCOUNTER 2019-06-16 08:58 | Outpatient (CLI) | payer OTHER ==
--- NOTE | 2019-06-16 11:47 | CT ---
CT OF CHEST AND ABDOMEN AND PELVIS PERFORMED WITH INTRAVENOUS CONTRAST ENHANCEMENT: HISTORY: Stable IV breast cancer with patient stating her cancer markers are going up. History of right lumpe ctomy. Bone metastases. COMPARISON: Bone scan and CT examination of 11/15/2018. FINDINGS: The lungs are clear of any infiltrative process. There are no pleural effusions or pulmonary nodules identified. There is no significant mediastinal, hilar, or axillary lymphadenopathy. CT OF ABDOMEN PERFORMED WITH CONTRAST ENHANCEMENT: There are diffuse fatty changes of the liver which measures 19 cm in length. The spleen is within no rmal limits of size at 11.4 cm. Pancreas and gallbladder regions appear unremarkable. Right and left adrenal glands and right and left kidneys are normal in size. There is no evidence of any significant periaortic or mesenteric lymphadenopathy. CT OF PELVIS PERFORMED WITH CONTRAST ENHANCEMENT: Appendix is normal. There is no evidence of any pelvic lymphadenopathy or mass. Review of osseous structures shows diffuse sclerotic bony metastatic disease. It has an appearance s imilar to the previous study. IMPRESSION: 1. Diffuse osseous metastatic disease similar to the previous exam. 2. Fatty change of the liver. 3. Overall stable exam as compared to the 11/15/2018 study. POS: [facility]
--- NOTE | 2019-06-16 13:14 | NM ---
WHOLE BODY BONE SCAN: COMPARISON: 10/04/2017, 11/15/2018. TECHNIQUE: Patient was administered 32 mCi of technetium 99m MDP. After appropriate delay, whole body imaging wa s performed. FINDINGS: Physiologic distribution of the radiotracer. Persistent uptake in bilateral shoulders, knees, feet an d ankles. The previously noted increased radiotracer localization in the ribs is less evident. There is mild up take of radiotracer along the posterior left pedicle at T11, and T12. There is uptake along the right obturator ring which is slightly more pronounced than the previous examination. Heterogeneous u ptake in the sternum is noted. IMPRESSION: 1. Decreased radiotracer localization in the ribs. 2. Mild radiotracer localization in the distal thoracic spine, as described above. 3. Slight increased radiotracer localization in the right obturator ring. 4. Correlation made with CT performed on 06/16/2019 demonstrates diffuse sclerosis suggesting multifoca l osseous metastases. Lack of radiotracer localization on the current nuclear medicine study, suggesting multifocal treated metastases. Small focal active metastatic lesion may be present in the right obturator ring and possibly the sternum. Transcribed Date/Time: 06/16/2019 1:34 PM
[2019-06-16] MEDS ORDERED: Iopamidol 370 76% 100 ML VIAL ONE (15:50)
== END 2019-06-16 08:59 | disposition home or self-care (01) ==
LOC: CT 08:58
PROVIDERS: ATTEND Internal Medicine Hematology & Oncology
DX: C50.612 Malignant neoplasm of axillary tail of left female breast (principal); C79.51 Secondary malignant neoplasm of bone; R97.1 Elevated cancer antigen 125 [CA 125]; K76.0 Fatty (change of) liver, not elsewhere classified; R94.8 Abnormal results of function studies of other organs and systems
CPT/HCPCS: 71260; 74177; 78306; A9503; Q9967

== ENCOUNTER 2019-10-21 09:20 | Outpatient (CLI) | payer OTHER ==
[2019-10-21] MEDS ORDERED: Iopamidol 370 76% 100 ML VIAL ONE (09:21)
--- NOTE | 2019-10-21 14:03 | NM ---
EXAM: NM Bone Scan STANDARD PROVIDED CLINICAL HISTORY: Malignant neoplasm of axillary tail of the left female breast COMPARISON: 06/16/2019 FINDINGS: Persistent areas of increased uptake are seen in the bilateral shoulders, knees and involving the luma ateral feet in a degenerative pattern. Heterogeneous uptake in the sternum with increased uptake in lower thoracic and upper lumbar vertebra l bodies is present. Small focus of mild increased uptake is again seen in the region of the right ischium. CT exam of the chest, abdomen, and pelvis demonstrates multiple sclerotic lesions seen throu ghout the spine as well as involving the sternum and pelvis. A new focal area of increased uptake is seen in the region of the right mandible which could potentia lly be secondary to periodontal disease. No additional new areas of abnormal uptake of radiotracer are visualized. Physiologic uptake is seen within the kidneys and urinary bladder. IMPRESSION: 1. Stable areas of increased uptake in the sternum and spine with stable small focus of uptake in the right ischium. The degree of uptake in these regions is similar to prior exam. However, the degree of uptake of radiotracer within the axial skeleton does not correspond to findings on CT examination as multiple sclerotic osseous metastatic lesions are visualized. As described on prior exam, findings may be related to treated metastatic disease. 2. New focal area of increased uptake in the right mandible which may be attributable to periodontal disease.
--- NOTE | 2019-10-21 14:14 | CT ---
EXAM: CHEST, ABDOMEN AND PELVIC CT SCAN WITH IV CONTRAST: 10/21/19 HISTORY: Malignant neoplasm left breast. Bone metastases. COMPARISON: 06/16/19. FINDINGS: Stable diffuse mostly sclerotic bone metastasis. No evidence for overt pathologic fracture. No medias tinal mass or adenopathy. No pleural effusion or pericardial effusion. Fatty changes in the liver. No abdominal or pelvic adenopathy. No abscess or abnormal fluid collection. IMPRESSION: Stable diffuse bone metastasis. Stable fatty changes in the liver. No significant new process. POS: [facility]
== END 2019-10-21 09:21 | disposition home or self-care (01) ==
LOC: CT 09:20 → NM 09:21
PROVIDERS: ATTEND Internal Medicine Hematology & Oncology
DX: C50.612 Malignant neoplasm of axillary tail of left female breast (principal); C79.51 Secondary malignant neoplasm of bone
CPT/HCPCS: 71260; 74177; 78306; A9503; Q9967

== ENCOUNTER 2020-05-12 08:52 | Outpatient (CLI) | payer OTHER ==
--- NOTE | 2020-05-12 10:31 | CT ---
CT CHEST AND ABDOMEN AND PELVIS WITH IV CONTRAST: INDICATION: Breast cancer with bone mets. COMPARISON: Comparison is made to CT chest, abdomen, and pelvis dated 02/03/2020. FINDINGS: CT CHEST: The lung choi remain clear. No infiltrate or effusion. No evidence of pulmonary mass or nodule. Mediastinum unremarkable. No adenopathy. No evidence of axillary adenopathy. Diffuse sclerotic met astatic disease to the thoracic spine, sternum, and ribs appear stable. IMPRESSION: 1. Diffuse bony metastatic disease. 2. No acute lung or chest process. CT ABDOMEN AND PELVIS: The liver again shows low attenuation suggesting fatty infiltration. The spleen and pancreas are unr emarkable. Stomach and duodenum unremarkable. Adrenal gland is normal. Kidneys unremarkable. There is new stranding and inflammatory change seen in the retroperitoneum at the level of the left r enal vein and extending somewhat superiorly to abut the medial limb of the left adrenal gland. Sligh t fullness of the left renal pelvis is new when compared to the prior exam. The ureter appears paten t without evidence of calculus. Inflammatory change extends to the anterior aspect of the abdominal aorta at this location. Small bowel loops are normal caliber. Colon unremarkable. Images through the pelvis show evidence of hysterectomy. The urinary bladder is unremarkable. No ad enopathy. Diffuse osseous metastatic changes appear stable involving pelvis and visualized lumbar and thoracic vertebral bodies. IMPRESSION: 1. New inflammatory changes seen in the retroperitoneum at the level of the left renal vein. Inflam matory changes extend to the anterior and lateral aorta at this location and extend superiorly along the medial limb of the left adrenal gland. Left renal vein thrombus cannot be excluded as a result o f this inflammatory process. Considerations include retroperitoneal fibrosis and periaortitis. Retr operitoneal fibrosis can be idiopathic. 2. Recommend CTA and CTV of the abdomen to rule out renal vein thrombosis. Findings were discussed with Dr. Carrillo. CODE CR POS: [facility]
--- NOTE | 2020-05-12 13:53 | NM ---
Exam: Nuclear medicine whole body bone scan COMPARISON: 02/02/2029 Correlation: CT 05/12/2020, 02/03/2020, 10/21/2019 HISTORY: Malignant neoplasm of the left axillary tail TECHNIQUE: Patient was ministered 32.20 mCi of MDP. Whole body imaging is performed FINDINGS: Physiologic distribution of the radiotracer. Stable degenerative changes. No scintigraphic evidence of recurrent/new osseous metastases. IMPRESSION: No scintigraphic evidence of osseous metastases. CT performed on 05/12/2020 demonstrates s clerosis, compatible with treated metastases.
[2020-05-12] MEDS ORDERED: Iopamidol 370 76% 100 ML VIAL ONE (14:19)
== END 2020-05-12 08:53 | disposition home or self-care (01) ==
LOC: CT 08:52 → NM 08:53
PROVIDERS: ATTEND Internal Medicine Hematology & Oncology
DX: C50.612 Malignant neoplasm of axillary tail of left female breast (principal); C79.51 Secondary malignant neoplasm of bone
CPT/HCPCS: 71260; 74177; 78306; A9503; Q9967

== ENCOUNTER 2020-05-14 08:39 | Outpatient (CLI) | payer OTHER ==
--- NOTE | 2020-05-14 10:46 | CT ---
CT ABDOMEN WITH CONTRAST: CT abdomen was obtained with CT venogram. A portal venous phase study was performed along with a del ayed venous phase study. INDICATION: Exam is performed to rule out left renal vein thrombosis. COMPARISON: Comparison is made to the CT exam of 05/12/2020. FINDINGS: The inflammatory process in the retroperitoneum at the level of the left renal vein is again noted. There is hazy inflammatory density along the anterior aspect of the aorta at this level and this proc ess engulfs the left renal vein and extends slightly anterior to the left renal vein. The delayed ve nous phase shows opacification of the renal vein and there is no definite evidence of renal vein thro mbus; however, there is evidence of significant renal vein compression and narrowing. There is symme tric enhancement and function of both kidneys on this exam. The inflammatory process extends superio rly along the left adrenal gland as noted on the prior study. IMPRESSION: Retroperitoneal inflammatory process centered at the level of the left renal vein and involving the a nterior aspect of the aorta. This engulfs the left renal vein and produces severe left renal vein na rrowing. No definite renal vein thrombus is identified on this study. Recommend consideration for catheter angiogram to assess degree of renal vein stenosis and consider s tent placement as this patient is at definite risk of renal vein thrombus and occlusion due to this r etroperitoneal process. These findings were also reviewed by Dr. Sparks and Dr. Way who agree with this assessment. Findings were discussed with Dr. Carrillo. CODE CR POS: [facility]
[2020-05-14] MEDS ORDERED: Iopamidol 370 76% 100 ML VIAL ONE (14:02)
== END 2020-05-14 08:40 | disposition home or self-care (01) ==
LOC: CT 08:39
PROVIDERS: ATTEND Internal Medicine Hematology & Oncology
DX: I82.3 Embolism and thrombosis of renal vein (principal); R93.5 Abnormal findings on diagnostic imaging of other abdominal regions, including retroperitoneum; C50.612 Malignant neoplasm of axillary tail of left female breast; C79.51 Secondary malignant neoplasm of bone; K68.9 Other disorders of retroperitoneum
CPT/HCPCS: 74175; Q9967

== ENCOUNTER 2020-08-09 10:32 | Inpatient (IN) | payer BC ==
[2020-08-09] MEDS ORDERED: Ondansetron PF 4 MG/2 ML Vial IVP PRN (12:22)
[2020-08-09] MEDS ORDERED: Ondansetron ODT 4 MG TAB PO PRN (12:22)
[2020-08-09] MEDS ORDERED: Bisacodyl 10 MG SUPP PR PRN (12:22)
[2020-08-09] MEDS ORDERED: Senokot S 8.6-50 MG TAB PO PRN (12:22)
[2020-08-09] MEDS ORDERED: Calcium Carbonate 500 MG ChewTAB PO PRN (12:22)
[2020-08-09] MEDS ORDERED: Acetaminophen 325 MG TAB PO PRN (12:22)
[2020-08-09] MEDS ORDERED: hydrALAZINE 20 MG/ML VIAL SLOW IVP PRN (12:32)
[2020-08-09] MEDS: Sodium Chloride 0.9% 1,000 ML IV SCH ×3 (12:44→23:59)
[2020-08-09] MEDS ORDERED: cloNIDine 0.1 MG TAB PO PRN (12:54)
[2020-08-09 12:55] LABS: #Eosinphils 0.2 thou/uL (0.0-0.7); #Lymphocytes 1.2 thou/uL (1.20-3.40); #Monocytes 0.7 thou/uL (0.11-0.59); %Basophils 0.4 % (0.0-1.0); %Eosinophils 2.9 % (0.0-10.0); %Lymphocytes 17.4 % (21.0-51.0); %Monocytes 9.4 % (0.0-10.0); %Neutrophils 69.9 % (42.0-75.0); Hemoglobin 8.6 g/dL (12.0-16.0); Mean Corpuscular HGB CONC 35.3 g/dL (32.0-36.0); Mean Corpuscular Hemoglobin 32.1 pg (27.0-31.0); Mean Corpuscular Volume 90.8 fL (78.0-98.0); Mean Platelet Volume 9.2 fL (7.4-10.4); Platelet Count 220 thou/uL (130-400); RBC Distribution Width 14.5 % (11.5-14.5); Red Blood Cell (RBC) Count 2.69 mill/uL (4.20-5.40); White Blood Cell (WBC) Count 7.1 thou/uL (4.8-10.8)
[2020-08-09] MEDS ORDERED: Dextrose 50% Abboject 50 ML SYRINGE SLOW IVP PRN (13:14)
[2020-08-09] MEDS ORDERED: Insulin Regular 300 UNITS/3 ML VIAL SC PRN ×2 (13:14)
[2020-08-09] MEDS ORDERED: Dextrose 5% in Water 1,000 ML IV PRN (13:14)
[2020-08-09 13:20] VITALS: BMI 40.7
[2020-08-09 13:34] LABS: ALT (SGPT) 55 U/L (8-55); AST (SGOT) 64 U/L (5-34); Albumin 4.3 g/dL (3.5-5.0); Alkaline Phosphatase 79 U/L (40-110); Anion Gap 21 mmol/L (10-20); BUN (Urea Nitrogen) 46 mg/dL (9.8-20.1); Bilirubin, Total 0.3 mg/dL (0.2-1.2); CK (CPK) 827 U/L (29-168); Calc. Creatinine Clearance 14 mL/min (70-130); Calcium 8.5 mg/dL (7.8-10.44); Carbon Dioxide 20 mmol/L (22-29); Chloride 101 mmol/L (98-107); Globulin 3.7 g/dL (2.4-3.5); Glucose 138 mg/dL (70-105); Magnesium 2.3 mg/dL (1.6-2.6); Potassium 3.3 mmol/L (3.5-5.1); Sodium 139 mmol/L (136-145)
[2020-08-09 13:35] LABS: Phosphorus 2.9 mg/dL (2.3-4.7)
[2020-08-09] MEDS ORDERED: Potassium Chloride 20 MEQ TAB PO SCH (14:00)
[2020-08-09 16:08] LABS: Bacteria/HPF 3+ HPF (None Seen); Bilirubin Negative (Negative); Blood, Urine 1+ (Negative); Clarity Clear (Clear); Glucose, Urine (Dipstick) Normal (Negative); Ketone, Urine Negative (Negative); Leukocyte Negative Leu/uL (Negative); Nitrite Negative (Negative); Protein, Urine (Dipstick) 30 mg/dL (Neg-Trace); RBC/HPF 0-3 HPF (0-3); Specific Gravity, Urine 1.005 (1.002-1.036); Squamous Epithelial 0-3 HPF (0-3); Urobilinogen Normal mg/dL (Less than 2); WBC/HPF 0-3 HPF (0-3); pH, Urine 7.5 (5.0-9.0)
[2020-08-09 16:15] LABS: Urine Culture Reflex Yes Yes
[2020-08-09 16:53] LABS: Creatinine, Urine 32.33 mg/dL (47-110)
[2020-08-09 17:47] LABS: SARS-CoV-2 PCR by NAA Not Detected (NotDetected)
[2020-08-09] MEDS: Rosuvastatin 5 MG TAB PO SCH (20:34)
[2020-08-09] MEDS: Heparin 5,000 UNITS/ML VIAL SC SCH (20:35)
[2020-08-10] MEDS: Sodium Chloride 0.9% 1,000 ML IV SCH ×4 (05:10→16:30)
[2020-08-10 06:41] LABS: #Eosinphils 0.2 thou/uL (0.0-0.7); #Lymphocytes 0.9 thou/uL (1.20-3.40); #Monocytes 0.4 thou/uL (0.11-0.59); #Neutrophils 3.5 thou/uL (1.40-6.50); %Basophils 0.5 % (0.0-1.0); %Eosinophils 3.6 % (0.0-10.0); %Lymphocytes 18.3 % (21.0-51.0); %Monocytes 8.7 % (0.0-10.0); Hemoglobin 7.6 g/dL (12.0-16.0); Mean Corpuscular HGB CONC 34.5 g/dL (32.0-36.0); Mean Corpuscular Hemoglobin 31.5 pg (27.0-31.0); Mean Corpuscular Volume 91.5 fL (78.0-98.0); Mean Platelet Volume 8.6 fL (7.4-10.4); Platelet Count 147 thou/uL (130-400); RBC Distribution Width 14.3 % (11.5-14.5); Red Blood Cell (RBC) Count 2.41 mill/uL (4.20-5.40); White Blood Cell (WBC) Count 5.1 thou/uL (4.8-10.8)
[2020-08-10 07:06] LABS: ALT (SGPT) 50 U/L (8-55); AST (SGOT) 52 U/L (5-34); Albumin 3.7 g/dL (3.5-5.0); Alkaline Phosphatase 70 U/L (40-110); Anion Gap 15 mmol/L (10-20); BUN (Urea Nitrogen) 40 mg/dL (9.8-20.1); Bilirubin, Total 0.3 mg/dL (0.2-1.2); Calc. Creatinine Clearance 14 mL/min (70-130); Calcium 7.8 mg/dL (7.8-10.44); Carbon Dioxide 22 mmol/L (22-29); Chloride 105 mmol/L (98-107); Globulin 2.9 g/dL (2.4-3.5); Glucose 120 mg/dL (70-105); Protein, Total 6.6 g/dL (6.0-8.3); Sodium 139 mmol/L (136-145)
[2020-08-10 07:15] LABS: Potassium 2.9 mmol/L (3.5-5.1)
[2020-08-10] MEDS ORDERED: Potassium Chloride 20 MEQ TAB PO SCH (07:30)
[2020-08-10] MEDS: Cholecalciferol 1,000 UNITS (25 MCG) TAB PO SCH (07:53)
[2020-08-10] MEDS: Heparin 5,000 UNITS/ML VIAL SC SCH ×2 (07:53→20:08)
[2020-08-10] MEDS: Aspirin 81 mg Enteric Coated Tablet PO SCH (07:53)
[2020-08-10] MEDS: Ascorbic Acid 500 mg Chewable Tablet PO SCH (07:53)
[2020-08-10] MEDS: Rosuvastatin 5 MG TAB PO SCH (20:08)
[2020-08-11] MEDS: Sodium Chloride 0.9% 1,000 ML IV SCH (02:39)
[2020-08-11] MEDS: Cholecalciferol 1,000 UNITS (25 MCG) TAB PO SCH (08:45)
[2020-08-11] MEDS: Ascorbic Acid 500 mg Chewable Tablet PO SCH (08:45)
[2020-08-11] MEDS: Aspirin 81 mg Enteric Coated Tablet PO SCH (08:45)
[2020-08-11] MEDS: Heparin 5,000 UNITS/ML VIAL SC SCH ×2 (08:48→20:06)
[2020-08-11] MEDS ORDERED: Sodium Chloride 0.9% 1,000 ML IV SCH (10:55)
[2020-08-11 13:46] LABS: Albumin 3.7 g/dL (3.5-5.0); Anion Gap 20 mmol/L (10-20); Calc. Creatinine Clearance 14 mL/min (70-130); Calcium 7.7 mg/dL (7.8-10.44); Carbon Dioxide 15 mmol/L (22-29); Chloride 110 mmol/L (98-107); Glucose 114 mg/dL (70-105); Phosphorus 3.5 mg/dL (2.3-4.7); Potassium 3.4 mmol/L (3.5-5.1); Sodium 142 mmol/L (136-145)
[2020-08-11 13:47] LABS: BUN (Urea Nitrogen) 37 mg/dL (9.8-20.1); BUN/Creatinine Ratio 5.05; CK (CPK) 725 U/L (29-168); Iron 53 ug/dL (50-170); Iron Binding Capacity, Total 256 mcg/dL (265-497)
[2020-08-11] MEDS: Sodium Bicarbonate 150 MEQ in Dextrose 5% in Water 1,000 ML IV SCH (16:53)
[2020-08-11] MEDS: Potassium Chloride 20 MEQ TAB PO SCH ×2 (16:53→20:04)
[2020-08-11] MEDS: Rosuvastatin 5 MG TAB PO SCH (20:10)
[2020-08-12] MEDS: Sodium Bicarbonate 150 MEQ in Dextrose 5% in Water 1,000 ML IV SCH ×2 (02:00→06:23)
[2020-08-12] MEDS ORDERED: Lidocaine 2% Viscous Solution 10 ML, Aluminum & Magnesium Hydroxide 30 ML SSW SCH (04:30)
[2020-08-12 07:18] LABS: Albumin 3.5 g/dL (3.5-5.0); Anion Gap 12 mmol/L (10-20); BUN (Urea Nitrogen) 32 mg/dL (9.8-20.1); BUN/Creatinine Ratio 4.54; Calc. Creatinine Clearance 14 mL/min (70-130); Calcium 7.5 mg/dL (7.8-10.44); Carbon Dioxide 25 mmol/L (22-29); Chloride 106 mmol/L (98-107); Glucose 129 mg/dL (70-105); Magnesium 1.9 mg/dL (1.6-2.6); Potassium 3.1 mmol/L (3.5-5.1); Sodium 140 mmol/L (136-145)
[2020-08-12 07:26] LABS: Hemoglobin 6.8 g/dL (12.0-16.0); Platelet Count 146 thou/uL (130-400)
[2020-08-12] MEDS ORDERED: Potassium Chloride 20 MEQ TAB PO SCH ×2 (08:15→12:00)
[2020-08-12] MEDS: Ascorbic Acid 500 mg Chewable Tablet PO SCH (09:19)
[2020-08-12] MEDS: Cholecalciferol 1,000 UNITS (25 MCG) TAB PO SCH (09:22)
[2020-08-12] MEDS: Aspirin 81 mg Enteric Coated Tablet PO SCH (09:26)
[2020-08-12] MEDS: Heparin 5,000 UNITS/ML VIAL SC SCH ×2 (09:26→20:25)
[2020-08-12] MEDS ORDERED: Epoetin (ESRD) 20,000 UNITS/ML SC SCH (09:30)
[2020-08-12] MEDS ORDERED: EPOETIN ALFA-EPBX (ESRD) 10,000 UNIT/ML VIAL SC SCH (12:00)
[2020-08-12] MEDS: Sodium Chloride 0.45% 1,000 ML IV SCH (17:38)
[2020-08-12] MEDS: Rosuvastatin 5 MG TAB PO SCH (20:07)
[2020-08-13 06:22] LABS: #Eosinphils 0.2 thou/uL (0.0-0.7); #Lymphocytes 1.2 thou/uL (1.20-3.40); #Monocytes 0.7 thou/uL (0.11-0.59); #Neutrophils 3.5 thou/uL (1.40-6.50); %Basophils 0.8 % (0.0-1.0); %Eosinophils 3.4 % (0.0-10.0); %Lymphocytes 21.3 % (21.0-51.0); %Monocytes 11.5 % (0.0-10.0); Hemoglobin 7.2 g/dL (12.0-16.0); Mean Corpuscular HGB CONC 34.6 g/dL (32.0-36.0); Mean Corpuscular Hemoglobin 31.2 pg (27.0-31.0); Mean Platelet Volume 9.5 fL (7.4-10.4); Platelet Count 155 thou/uL (130-400); RBC Distribution Width 14.5 % (11.5-14.5); Red Blood Cell (RBC) Count 2.32 mill/uL (4.20-5.40); White Blood Cell (WBC) Count 5.6 thou/uL (4.8-10.8)
[2020-08-13 06:42] LABS: Albumin 3.5 g/dL (3.5-5.0); Anion Gap 16 mmol/L (10-20); BUN (Urea Nitrogen) 30 mg/dL (9.8-20.1); CK (CPK) 613 U/L (29-168); Calc. Creatinine Clearance 14 mL/min (70-130); Calcium 7.9 mg/dL (7.8-10.44); Carbon Dioxide 18 mmol/L (22-29); Chloride 108 mmol/L (98-107); Glucose 106 mg/dL (70-105); Phosphorus 3.2 mg/dL (2.3-4.7); Potassium 3.3 mmol/L (3.5-5.1); Sodium 139 mmol/L (136-145)
[2020-08-13] MEDS: Cholecalciferol 1,000 UNITS (25 MCG) TAB PO SCH (08:31)
[2020-08-13] MEDS: Aspirin 81 mg Enteric Coated Tablet PO SCH (08:31)
[2020-08-13] MEDS: Ascorbic Acid 500 mg Chewable Tablet PO SCH (08:31)
[2020-08-13] MEDS: Heparin 5,000 UNITS/ML VIAL SC SCH (08:32)
[2020-08-13] MEDS: Sodium Chloride 0.45% 1,000 ML IV SCH (10:16)
[2020-08-13] MEDS ORDERED: Potassium Chloride 20 MEQ TAB PO SCH (11:00)
[2020-08-13] MEDS ORDERED: Sodium Bicarbonate 150 MEQ in Dextrose 5% in Water 1,000 ML IV SCH (11:15)
[2020-08-13] MEDS: Potassium Chloride 20 MEQ TAB PO SCH ×2 (17:51→20:06)
[2020-08-13] MEDS: Rosuvastatin 5 MG TAB PO SCH (20:07)
[2020-08-13 21:03] LABS: Bacteria/HPF 4+ HPF (None Seen); Bilirubin Negative (Negative); Blood, Urine 1+ (Negative); Clarity Clear (Clear); Glucose, Urine (Dipstick) 150 mg/dL (Negative); Ketone, Urine Negative (Negative); Leukocyte 25 Leu/uL (Negative); Nitrite Negative (Negative); Protein, Urine (Dipstick) 50 mg/dL (Neg-Trace); RBC/HPF 0-3 HPF (0-3); Renal Epithelial 0-3 HPF (None Seen); Specific Gravity, Urine 1.005 (1.002-1.036); Squamous Epithelial 0-3 HPF (0-3); Urobilinogen Normal mg/dL (Less than 2); pH, Urine 7.5 (5.0-9.0)
[2020-08-14 06:17] LABS: #Eosinphils 0.2 thou/uL (0.0-0.7); #Lymphocytes 0.9 thou/uL (1.20-3.40); #Monocytes 0.6 thou/uL (0.11-0.59); #Neutrophils 3.2 thou/uL (1.40-6.50); %Basophils 0.8 % (0.0-1.0); %Eosinophils 3.7 % (0.0-10.0); %Lymphocytes 18.6 % (21.0-51.0); %Monocytes 11.2 % (0.0-10.0); %Neutrophils 65.6 % (42.0-75.0); Hemoglobin 7.9 g/dL (12.0-16.0); Mean Corpuscular HGB CONC 34.1 g/dL (32.0-36.0); Mean Corpuscular Hemoglobin 30.7 pg (27.0-31.0); Mean Corpuscular Volume 90.1 fL (78.0-98.0); Mean Platelet Volume 9.1 fL (7.4-10.4); Platelet Count 150 thou/uL (130-400); RBC Distribution Width 14.5 % (11.5-14.5); Red Blood Cell (RBC) Count 2.55 mill/uL (4.20-5.40); White Blood Cell (WBC) Count 4.9 thou/uL (4.8-10.8)
[2020-08-14 06:35] LABS: Albumin 3.5 g/dL (3.5-5.0); Anion Gap 16 mmol/L (10-20); BUN (Urea Nitrogen) 28 mg/dL (9.8-20.1); BUN/Creatinine Ratio 4.03; Calc. Creatinine Clearance 15 mL/min (70-130); Carbon Dioxide 19 mmol/L (22-29); Chloride 110 mmol/L (98-107); Glucose 116 mg/dL (70-105); Phosphorus 2.9 mg/dL (2.3-4.7); Potassium 3.8 mmol/L (3.5-5.1); Sodium 141 mmol/L (136-145)
[2020-08-14] MEDS: Aspirin 81 mg Enteric Coated Tablet PO SCH (07:35)
[2020-08-14] MEDS: Ascorbic Acid 500 mg Chewable Tablet PO SCH (07:35)
[2020-08-14] MEDS: Cholecalciferol 1,000 UNITS (25 MCG) TAB PO SCH (07:36)
[2020-08-14] MEDS ORDERED: Potassium Chloride 20 MEQ TAB PO SCH (12:00)
[2020-08-14] MEDS: Rosuvastatin 5 MG TAB PO SCH (20:56)
[2020-08-15 05:47] LABS: #Basophils 0.1 thou/uL (0.0-0.2); #Eosinphils 0.2 thou/uL (0.0-0.7); #Lymphocytes 1.1 thou/uL (1.20-3.40); #Monocytes 0.7 thou/uL (0.11-0.59); #Neutrophils 3.4 thou/uL (1.40-6.50); %Basophils 1.1 % (0.0-1.0); %Eosinophils 4.2 % (0.0-10.0); %Lymphocytes 19.3 % (21.0-51.0); %Neutrophils 62.4 % (42.0-75.0); Hemoglobin 7.8 g/dL (12.0-16.0); Mean Corpuscular HGB CONC 33.5 g/dL (32.0-36.0); Mean Corpuscular Hemoglobin 30.4 pg (27.0-31.0); Mean Corpuscular Volume 90.5 fL (78.0-98.0); Mean Platelet Volume 9.2 fL (7.4-10.4); Platelet Count 162 thou/uL (130-400); RBC Distribution Width 14.5 % (11.5-14.5); Red Blood Cell (RBC) Count 2.56 mill/uL (4.20-5.40); White Blood Cell (WBC) Count 5.5 thou/uL (4.8-10.8)
[2020-08-15 06:08] LABS: Anion Gap 14 mmol/L (10-20); BUN (Urea Nitrogen) 28 mg/dL (9.8-20.1); Calc. Creatinine Clearance 15 mL/min (70-130); Calcium 8.4 mg/dL (7.8-10.44); Carbon Dioxide 22 mmol/L (22-29); Chloride 108 mmol/L (98-107); Glucose 101 mg/dL (70-105); Potassium 3.7 mmol/L (3.5-5.1); Sodium 140 mmol/L (136-145)
[2020-08-15] MEDS: Aspirin 81 mg Enteric Coated Tablet PO SCH (07:43)
[2020-08-15] MEDS: Ascorbic Acid 500 mg Chewable Tablet PO SCH (07:43)
[2020-08-15] MEDS: Cholecalciferol 1,000 UNITS (25 MCG) TAB PO SCH (07:43)
[2020-08-15] MEDS ORDERED: Potassium Chloride 20 MEQ TAB PO SCH (12:45)
[2020-08-15] MEDS: Rosuvastatin 5 MG TAB PO SCH (20:39)
[2020-08-16 05:52] LABS: #Basophils 0.1 thou/uL (0.0-0.2); #Eosinphils 0.3 thou/uL (0.0-0.7); #Lymphocytes 1.1 thou/uL (1.20-3.40); #Monocytes 0.8 thou/uL (0.11-0.59); #Neutrophils 3.4 thou/uL (1.40-6.50); %Eosinophils 4.8 % (0.0-10.0); %Lymphocytes 18.9 % (21.0-51.0); %Neutrophils 61.4 % (42.0-75.0); Hemoglobin 7.7 g/dL (12.0-16.0); Mean Corpuscular HGB CONC 34.1 g/dL (32.0-36.0); Mean Corpuscular Hemoglobin 30.8 pg (27.0-31.0); Mean Corpuscular Volume 90.4 fL (78.0-98.0); Platelet Count 172 thou/uL (130-400); RBC Distribution Width 14.6 % (11.5-14.5); Red Blood Cell (RBC) Count 2.51 mill/uL (4.20-5.40); White Blood Cell (WBC) Count 5.6 thou/uL (4.8-10.8)
[2020-08-16 06:14] LABS: Anion Gap 16 mmol/L (10-20); BUN (Urea Nitrogen) 31 mg/dL (9.8-20.1); Calc. Creatinine Clearance 15 mL/min (70-130); Calcium 8.6 mg/dL (7.8-10.44); Carbon Dioxide 20 mmol/L (22-29); Chloride 108 mmol/L (98-107); Glucose 99 mg/dL (70-105); Potassium 3.8 mmol/L (3.5-5.1); Sodium 140 mmol/L (136-145)
[2020-08-16] MEDS: Cholecalciferol 1,000 UNITS (25 MCG) TAB PO SCH (08:11)
[2020-08-16] MEDS: Aspirin 81 mg Enteric Coated Tablet PO SCH (08:11)
[2020-08-16] MEDS: Ascorbic Acid 500 mg Chewable Tablet PO SCH (08:11)
[2020-08-16 11:24] VITALS: BP 137/88; TEMP 98.2
[2020-08-18 12:38] LABS: Cytoplasmic (C-ANCA) <1:20 titer (Neg:<1:20); Myeloperoxidase AutoAbs <9.0 U/mL (0.0-9.0); Perinuclear (P-ANCA) <1:20 titer (Neg:<1:20); Proteinase-3 AutoAbs Less than 3.5 U/mL (0.0-3.5)
== END 2020-08-16 11:26 | disposition home or self-care (01) | DRG 683 ==
LOC: T4-B 10:32
PROVIDERS: ADMIT Internal Medicine; ATTEND Internal Medicine
PROC: 30233N1 Transfusion of Nonautologous Red Blood Cells into Peripheral Vein, Percutaneous Approach (ICD-10-PCS; principal; 2020-08-12)
DX: N17.0 Acute kidney failure with tubular necrosis (principal); Z68.41 Body mass index [BMI] 40.0-44.9, adult; E87.2 Acidosis; C78.6 Secondary malignant neoplasm of retroperitoneum and peritoneum; I12.0 Hypertensive chronic kidney disease with stage 5 chronic kidney disease or end stage renal disease; Z20.822 Contact with and (suspected) exposure to COVID-19; E11.22 Type 2 diabetes mellitus with diabetic chronic kidney disease; E66.9 Obesity, unspecified; E87.6 Hypokalemia; E78.5 Hyperlipidemia, unspecified; D63.1 Anemia in chronic kidney disease; M19.90 Unspecified osteoarthritis, unspecified site; N18.5 Chronic kidney disease, stage 5; C50.912 Malignant neoplasm of unspecified site of left female breast; K21.9 Gastro-esophageal reflux disease without esophagitis; Z79.84 Long term (current) use of oral hypoglycemic drugs; Z79.82 Long term (current) use of aspirin; Z79.899 Other long term (current) drug therapy; Z90.710 Acquired absence of both cervix and uterus; Z17.1 Estrogen receptor negative status [ER-]
CPT/HCPCS: 36415; 36416; 36430; 76770; 80048; 80053; 80069; 81001; 82248; 82550; 82570; 82728; 83516; 83520; 83540; 83550; 83615; 83735; 84100; 84156; 84550; 85014; 85018; 85025; 85049; 86038; 86225; 86256; 86850; 86900; 86901; 87086; 87635; 93306; J1644; J7070; P9016; Q5105; U0003; U0005

== ENCOUNTER 2020-09-14 08:13 | Outpatient (CLI) | payer BC | END 2020-09-14 08:14 | disposition home or self-care (01) | LOC: PET 08:13 | PROVIDERS: ATTEND Internal Medicine Hematology & Oncology | DX: C50.612 Malignant neoplasm of axillary tail of left female breast (principal); C79.51 Secondary malignant neoplasm of bone; N13.30 Unspecified hydronephrosis | CPT/HCPCS: 78815; A9552 ==

== ENCOUNTER 2020-09-24 06:58 | Day surgery (SDC) | payer BC ==
[2020-09-23 09:25] VITALS: BMI 38.2
[2020-09-24] MEDS ORDERED: Acetaminophen 500 MG TAB ONE (07:40)
[2020-09-24] MEDS ORDERED: Fentanyl 100 MCG/2 ML VIAL ONE (08:31)
[2020-09-24] MEDS ORDERED: Lidocaine 2% w/Epinephrine 1:200K 20 ML VIAL ONE (08:32)
[2020-09-24] MEDS ORDERED: Bupivacaine PF 0.5% 30 ML VIAL ONE (08:32)
[2020-09-24] MEDS ORDERED: PROPOFOL 200 MG/20 ML VIAL ONE (08:52)
[2020-09-24] MEDS ORDERED: ePHEDrine Sulfate 50 MG/10 ML VIAL ONE (08:52)
[2020-09-24] MEDS ORDERED: Lidocaine 1% PF 5 ML VIAL ONE (08:52)
[2020-09-24] MEDS ORDERED: Ondansetron PF 4 MG/2 ML Vial ONE (08:52)
[2020-09-24] MEDS ORDERED: Dexamethasone 20 MG/5 ML VIAL ONE (08:52)
== END 2020-09-24 11:30 | disposition home or self-care (01) ==
LOC: SDC 06:58
PROVIDERS: ATTEND Specialist
PROC: 02HV33Z Insertion of Infusion Device into Superior Vena Cava, Percutaneous Approach (ICD-10-PCS; principal; 2020-09-24)
DX: C50.912 Malignant neoplasm of unspecified site of left female breast (principal); C79.00 Secondary malignant neoplasm of unspecified kidney and renal pelvis; Z79.82 Long term (current) use of aspirin; Z79.899 Other long term (current) drug therapy
CPT/HCPCS: 71045; C1788; J0690; J1100; J1642; J2405; J2704; J3010; S0020

== ENCOUNTER 2020-10-19 15:51 | Outpatient (CLI) | payer BC | END 2020-10-19 15:52 | disposition home or self-care (01) | LOC: BICULT 15:51 | PROVIDERS: ATTEND Urology | DX: N13.39 Other hydronephrosis (principal) | CPT/HCPCS: 76770 ==

== ENCOUNTER 2021-04-05 08:23 | Outpatient (CLI) | payer BC | END 2021-04-05 08:24 | disposition home or self-care (01) | LOC: PET 08:23 | PROVIDERS: ATTEND Internal Medicine Hematology & Oncology | DX: C50.612 Malignant neoplasm of axillary tail of left female breast (principal); C79.51 Secondary malignant neoplasm of bone | CPT/HCPCS: 78815; A9552 ==

== ENCOUNTER 2021-04-12 08:16 | Outpatient (CLI) | payer BC ==
[2021-04-12] MEDS ORDERED: Magnevist 469MG/ML 20 ML VIAL ONE (10:48)
== END 2021-04-12 08:17 | disposition home or self-care (01) ==
LOC: TBSIIMAG 08:16
PROVIDERS: ATTEND Internal Medicine Hematology & Oncology
DX: C50.612 Malignant neoplasm of axillary tail of left female breast (principal); C79.51 Secondary malignant neoplasm of bone; R93.7 Abnormal findings on diagnostic imaging of other parts of musculoskeletal system; M89.9 Disorder of bone, unspecified; M48.04 Spinal stenosis, thoracic region
CPT/HCPCS: 72157; 82565; A9579

== ENCOUNTER 2021-07-05 08:45 | Outpatient (CLI) | payer BC | END 2021-07-05 08:46 | disposition home or self-care (01) | LOC: PET 08:45 | PROVIDERS: ATTEND Internal Medicine Hematology & Oncology | DX: C50.612 Malignant neoplasm of axillary tail of left female breast (principal); C79.51 Secondary malignant neoplasm of bone | CPT/HCPCS: 78815; A9552 ==

== ENCOUNTER 2021-09-13 13:46 | Outpatient (CLI) | payer BC ==
[2021-09-13 14:52] LABS: Hemoglobin 9.8 g/dL (12.0-15.5); Mean Corpuscular Hemoglobin 30.2 pg (27.0-33.0); Mean Corpuscular Volume 91.7 fl (81.6-98.3); Mean Platelet Volume 10.2 fl (7.4-10.4); Platelet Count 441 10x3/uL (150-450); Red Blood Cell (RBC) Count 3.24 10x6/uL (3.90-5.03)
[2021-09-13 14:53] LABS: Bilirubin Neg (Negative); Blood, Urine Negative (Negative); Clarity Clear (Clear); Glucose, Urine (Dipstick) Normal (Negative); Ketone, Urine Negative (Negative); Leukocyte Negative (Negative); Nitrite Negative (Negative); Protein, Urine (Dipstick) Negative (Neg-Trace); Urobilinogen Normal mg/dL (Less than 2)
[2021-09-13 15:19] LABS: INR-International Normal Ratio 0.9; PTT 25.9 sec (22.0-33.0); Prothrombin Time 10.2 sec (9.5-12.1)
[2021-09-13 15:25] LABS: RBC/HPF None Seen HPF (0-3)
[2021-09-13 15:29] LABS: Anion Gap 14 mmol/L (10-20); BUN (Urea Nitrogen) 29 mg/dL (9.8-20.1); Calc. Creatinine Clearance 0 mL/min (70-130); Calcium 9.6 mg/dL (7.8-10.44); Carbon Dioxide 22 mmol/L (22-29); Chloride 106 mmol/L (98-107); Glucose 136 mg/dL (70-105); Potassium 4.1 mmol/L (3.5-5.1); Sodium 138 mmol/L (136-145)
== END 2021-09-13 13:47 | disposition home or self-care (01) ==
LOC: LABBT 13:46
PROVIDERS: ATTEND Urology
DX: Z01.818 Encounter for other preprocedural examination (principal); N13.30 Unspecified hydronephrosis; N18.4 Chronic kidney disease, stage 4 (severe); N13.5 Crossing vessel and stricture of ureter without hydronephrosis; C50.919 Malignant neoplasm of unspecified site of unspecified female breast; Z20.822 Contact with and (suspected) exposure to COVID-19
CPT/HCPCS: 80048; 81001; 85027; 85610; 85730; 87086; 93005; 93010

== ENCOUNTER 2021-09-16 06:56 | Day surgery (SDC) | payer BC ==
[2021-09-13 10:37] VITALS: BMI 40.5
[2021-09-16] MEDS ORDERED: Levofloxacin 500 mg/D5W 100 ml Premix Bag ONE ×2 (07:45→09:36)
[2021-09-16] MEDS ORDERED: Iothalamate Meglumine 60% 50 ML VIAL FS ONE (09:23)
[2021-09-16] MEDS ORDERED: B & O ONE (09:23)
[2021-09-16] MEDS ORDERED: Midazolam HCl 2 mg/2 ml Vial ONE (09:28)
[2021-09-16] MEDS ORDERED: Famotidine/PF 20 mg/2ml Vial ONE (09:28)
[2021-09-16] MEDS ORDERED: Fentanyl 100 MCG/2 ML VIAL ONE (09:28)
[2021-09-16] MEDS ORDERED: Lidocaine 1% PF 5 ML VIAL ONE (09:40)
[2021-09-16] MEDS ORDERED: PROPOFOL 200 MG/20 ML VIAL ONE (09:40)
[2021-09-16] MEDS ORDERED: Ondansetron PF 4 MG/2 ML Vial ONE (09:40)
== END 2021-09-16 11:40 | disposition home or self-care (01) ==
LOC: SDC 06:56
PROVIDERS: ATTEND Urology
PROC: 0T768DZ Dilation of Right Ureter with Intraluminal Device, Via Natural or Artificial Opening Endoscopic (ICD-10-PCS; principal; 2021-09-16)
DX: N13.30 Unspecified hydronephrosis (principal); N17.9 Acute kidney failure, unspecified; N13.5 Crossing vessel and stricture of ureter without hydronephrosis; I12.0 Hypertensive chronic kidney disease with stage 5 chronic kidney disease or end stage renal disease; E11.22 Type 2 diabetes mellitus with diabetic chronic kidney disease; N18.4 Chronic kidney disease, stage 4 (severe); C50.919 Malignant neoplasm of unspecified site of unspecified female breast; E66.01 Morbid (severe) obesity due to excess calories; Z68.41 Body mass index [BMI] 40.0-44.9, adult; Z79.82 Long term (current) use of aspirin; Z79.899 Other long term (current) drug therapy
CPT/HCPCS: 74420; C2617; J1956; J2250; J2405; J2704; J3010; Q9961-U8; S0028

== ENCOUNTER 2021-10-18 13:31 | Outpatient (CLI) | payer BC | END 2021-10-18 13:32 | disposition home or self-care (01) | LOC: BICULT 13:31 | PROVIDERS: ATTEND Urology | DX: N13.39 Other hydronephrosis (principal); K76.9 Liver disease, unspecified | CPT/HCPCS: 76770 ==

== ENCOUNTER 2021-10-21 09:40 | Outpatient (CLI) | payer BC ==
[2021-10-21 18:33] LABS: SARS-CoV-2 PCR by NAA Not Detected (NotDetected)
== END 2021-10-21 09:41 | disposition home or self-care (01) ==
LOC: LABBT 09:40
PROVIDERS: ATTEND Urology
DX: Z20.822 Contact with and (suspected) exposure to COVID-19 (principal)
CPT/HCPCS: U0003; U0005

== ENCOUNTER → 2021-10-26 | Day surgery (SDC) | payer BC ==
[2021-10-21 14:27] VITALS: BMI 40.1
[~2021-10-26] MED LIST: Fentanyl 100 MCG/2 ML VIAL ONE; Midazolam HCl 2 mg/2 ml Vial ONE; Ondansetron PF 4 MG/2 ML Vial ONE; cefTRIAXone\\ROCEPHIN 1 GM in Sodium Chloride 0.9% 100 ML IVPB SCH
[2021-10-26 07:58] LABS: PTT 27.7 sec (22.9-36.1)
[2021-10-26 08:45] VITALS: BP 135/82; TEMP 98.3
== END | disposition home or self-care (01) ==
LOC: SPEC 07:33
PROVIDERS: ATTEND Urology
PROC: 0T9030Z Drainage of Right Kidney with Drainage Device, Percutaneous Approach (ICD-10-PCS; principal; 2021-10-26)
PROC: 0T9130Z Drainage of Left Kidney with Drainage Device, Percutaneous Approach (ICD-10-PCS; principal; 2021-10-26)
DX: N13.1 Hydronephrosis with ureteral stricture, not elsewhere classified (principal); I12.9 Hypertensive chronic kidney disease with stage 1 through stage 4 chronic kidney disease, or unspecified chronic kidney disease; E11.22 Type 2 diabetes mellitus with diabetic chronic kidney disease; N18.4 Chronic kidney disease, stage 4 (severe); D63.1 Anemia in chronic kidney disease; E66.01 Morbid (severe) obesity due to excess calories; Z68.41 Body mass index [BMI] 40.0-44.9, adult; Z85.3 Personal history of malignant neoplasm of breast; Z79.82 Long term (current) use of aspirin; Z79.899 Other long term (current) drug therapy
CPT/HCPCS: 50430; 50432; 74485; 76942; 85610; 85730; C1729; J0696; J2250; J2405; J3010; J3490

== ENCOUNTER 2021-11-25 08:00 | Outpatient (CLI) | payer BC | END 2021-11-25 08:01 | disposition home or self-care (01) | LOC: PET 08:00 | PROVIDERS: ATTEND Internal Medicine Hematology & Oncology | DX: C50.612 Malignant neoplasm of axillary tail of left female breast (principal); C79.51 Secondary malignant neoplasm of bone | CPT/HCPCS: 78815; A9552 ==

== ENCOUNTER 2022-01-16 07:33 | Day surgery (SDC) | payer BC ==
[2022-01-16 08:33] VITALS: BP 151/100; TEMP 97.8
[2022-01-16] MEDS ORDERED: Lidocaine 1% PF 5 ML VIAL ONE (08:39)
[2022-01-16] MEDS ORDERED: Sodium Bicarbonate 2.5 MEQ/5 ML VIAL ONE (08:39)
[2022-01-16] MEDS ORDERED: Iopamidol 300 61% 50 ML VIAL FS ONE (16:07)
== END 2022-01-16 10:30 | disposition home or self-care (01) ==
LOC: SPEC 07:33
PROVIDERS: ATTEND Urology
PROC: 0T25X0Z Change Drainage Device in Kidney, External Approach (ICD-10-PCS; principal; 2022-01-16)
DX: Z46.6 Encounter for fitting and adjustment of urinary device (principal); N13.5 Crossing vessel and stricture of ureter without hydronephrosis; C50.919 Malignant neoplasm of unspecified site of unspecified female breast; C79.9 Secondary malignant neoplasm of unspecified site
CPT/HCPCS: 50430; 50431; 50436; C1729; Q9967

== ENCOUNTER → 2022-01-23 | Day surgery (SDC) | payer BC ==
[~2022-01-23] MED LIST changes: -Fentanyl 100 MCG/2 ML VIAL ONE; +Iopamidol 300 61% 50 ML VIAL FS ONE; +Lidocaine 1% PF 5 ML VIAL ONE; -Midazolam HCl 2 mg/2 ml Vial ONE; -Ondansetron PF 4 MG/2 ML Vial ONE; +Sodium Bicarbonate 2.5 MEQ/5 ML VIAL ONE
== END | disposition home or self-care (01) ==
LOC: SPEC 09:32
PROVIDERS: ATTEND Urology
PROC: 0T25X0Z Change Drainage Device in Kidney, External Approach (ICD-10-PCS; principal; 2022-01-23)
DX: T83.022A Displacement of nephrostomy catheter, initial encounter (principal); C50.919 Malignant neoplasm of unspecified site of unspecified female breast; C79.9 Secondary malignant neoplasm of unspecified site; Y73.3 Surgical instruments, materials and gastroenterology and urology devices (including sutures) associated with adverse incidents
CPT/HCPCS: 50430; 50432; 50436; C1729; J0696; J3490; Q9967

== ENCOUNTER 2022-03-20 07:19 | Day surgery (SDC) | payer BC ==
[2022-03-16 13:20] VITALS: BMI 38.0
[~2022-03-20 07:19] MED LIST changes: +FLU VACC QS2022-23(6MOS UP)/PF 60 MCG/0.5 ML SYRINGE IM ONE; -Iopamidol 300 61% 50 ML VIAL FS ONE; -Lidocaine 1% PF 5 ML VIAL ONE; -Sodium Bicarbonate 2.5 MEQ/5 ML VIAL ONE; -cefTRIAXone\\ROCEPHIN 1 GM in Sodium Chloride 0.9% 100 ML IVPB SCH
[2022-03-20] MEDS ORDERED: Lidocaine 2% PF 5 ML VIAL ONE (08:02)
[2022-03-20] MEDS ORDERED: Sodium Bicarbonate 2.5 MEQ/5 ML VIAL ONE (08:02)
[2022-03-20 11:15] VITALS: BP 141/88; TEMP 97.6
== END 2022-03-20 10:35 | disposition home or self-care (01) ==
LOC: SPEC 07:19
PROVIDERS: ATTEND Urology
PROC: 0T25X0Z Change Drainage Device in Kidney, External Approach (ICD-10-PCS; principal; 2022-03-20)
DX: Z46.6 Encounter for fitting and adjustment of urinary device (principal); N13.5 Crossing vessel and stricture of ureter without hydronephrosis; C50.919 Malignant neoplasm of unspecified site of unspecified female breast; C79.9 Secondary malignant neoplasm of unspecified site; Z79.82 Long term (current) use of aspirin; Z79.899 Other long term (current) drug therapy
CPT/HCPCS: 50431; 50435; 74485; C1729; J2001

== ENCOUNTER 2022-03-21 10:15 | Outpatient (CLI) | payer BC | END 2022-03-21 10:16 | disposition home or self-care (01) | LOC: PET 10:15 | PROVIDERS: ATTEND Internal Medicine Hematology & Oncology | DX: C50.612 Malignant neoplasm of axillary tail of left female breast (principal); C79.51 Secondary malignant neoplasm of bone; N18.9 Chronic kidney disease, unspecified; K76.89 Other specified diseases of liver; D63.1 Anemia in chronic kidney disease | CPT/HCPCS: 78815; A9552 ==

== ENCOUNTER → 2022-04-04 | Day surgery (SDC) | payer BC ==
[2022-04-03 14:52] VITALS: BMI 39.6
[2022-04-04 08:48] LABS: INR-International Normal Ratio 1.1; PTT 31.8 sec (22.9-36.1); Prothrombin Time 14.2 sec (12.0-14.7)
[2022-04-04 09:36] VITALS: BP 120/76; TEMP 97.4
== END | disposition home or self-care (01) ==
LOC: CT 08:29
PROVIDERS: ATTEND Internal Medicine Hematology & Oncology
PROC: 0FB23ZX Excision of Left Lobe Liver, Percutaneous Approach, Diagnostic (ICD-10-PCS; principal; 2022-04-04)
DX: C78.7 Secondary malignant neoplasm of liver and intrahepatic bile duct (principal); C50.612 Malignant neoplasm of axillary tail of left female breast; C79.51 Secondary malignant neoplasm of bone; I12.0 Hypertensive chronic kidney disease with stage 5 chronic kidney disease or end stage renal disease; N18.6 End stage renal disease; D63.1 Anemia in chronic kidney disease; R73.03 Prediabetes; E78.5 Hyperlipidemia, unspecified; M19.90 Unspecified osteoarthritis, unspecified site; Z17.0 Estrogen receptor positive status [ER+]; Z79.82 Long term (current) use of aspirin; Z79.899 Other long term (current) drug therapy
CPT/HCPCS: 47000; 77002; 85610; 85730; 88307; 88333; 88341; 88342

== ENCOUNTER 2022-05-18 07:37 | Day surgery (SDC) | payer BC ==
[2022-01-13 12:03] VITALS: BMI 38.0
[2022-05-18 08:21] VITALS: BP 130/81; TEMP 98
[2022-05-18] MEDS ORDERED: FLU VACC QS2022-23(6MOS UP)/PF 60 MCG/0.5 ML SYRINGE IM ONE (08:30)
[2022-05-18] MEDS ORDERED: Iopamidol 300 61% 100 ML VIAL FS ONE (16:06)
== END 2022-05-18 10:20 | disposition home or self-care (01) ==
LOC: SPEC 07:37
PROVIDERS: ATTEND Urology
PROC: 0T25X0Z Change Drainage Device in Kidney, External Approach (ICD-10-PCS; principal; 2022-05-18)
DX: Z46.6 Encounter for fitting and adjustment of urinary device (principal); N13.30 Unspecified hydronephrosis; C50.911 Malignant neoplasm of unspecified site of right female breast; C79.9 Secondary malignant neoplasm of unspecified site
CPT/HCPCS: 50431; 50435; C1729; Q9967

== ENCOUNTER → 2022-06-15 | Outpatient (CLI) | payer BC | LOC: PET 08:45 | PROVIDERS: ATTEND Internal Medicine Hematology & Oncology | DX: C50.612 Malignant neoplasm of axillary tail of left female breast (principal); C79.51 Secondary malignant neoplasm of bone; C22.8 Malignant neoplasm of liver, primary, unspecified as to type | CPT/HCPCS: 78815; A9552 ==

== ENCOUNTER 2022-06-19 11:41 | Day surgery (SDC) | payer BC ==
[2022-06-19] MEDS ORDERED: diphenhydrAMINE 25 MG CAP ONE (12:55)
[2022-06-19] MEDS ORDERED: Acetaminophen 500 MG TAB ONE (12:55)
[2022-06-19 15:55] VITALS: TEMP 98.9
[2022-06-19] MEDS ORDERED: Sodium Chloride 0.9% 1,000 ML IV SCH (17:15)
[2022-06-19 17:26] VITALS: BP 103/56
[2022-06-19 18:04] LABS: #Basophils 0.1 thou/uL (0.0-0.2); #Eosinphils 0.1 thou/uL (0.0-0.7); #Lymphocytes 1.6 thou/uL (1.20-3.40); #Monocytes 0.8 thou/uL (0.11-0.59); #Neutrophils 5.3 thou/uL (1.40-6.50); %Basophils 0.6 % (0.0-1.0); %Eosinophils 1.7 % (0.0-10.0); %Lymphocytes 20.6 % (21.0-51.0); %Monocytes 10.2 % (0.0-10.0); %Neutrophils 66.9 % (42.0-75.0); Hemoglobin 7.9 g/dL (12.0-16.0); Mean Corpuscular HGB CONC 33.3 g/dL (32.0-36.0); Mean Corpuscular Hemoglobin 31.3 pg (27.0-31.0); Mean Corpuscular Volume 93.7 fl (78.0-98.0); Mean Platelet Volume 10.3 fL (7.4-10.4); Platelet Count 89 10x3/uL (130-400); RBC Distribution Width 21.9 % (11.5-14.5); Red Blood Cell (RBC) Count 2.52 mill/uL (4.20-5.40)
[2022-06-19 18:14] LABS: Anisocytosis SLIGHT = 6-15 cells (100X) (0-5/hpf); MDiff Complete? YES; Ovalocytes SLIGHT = 2-5 cells (100X) (0-1/hpf); Platelet Morphology Comment Appears Decreased; Polychromasia SLIGHT = 2-3 cells (100X) (0-2/hpf)
== END 2022-06-19 17:32 | disposition home or self-care (01) ==
LOC: ONC/OP 11:41
PROVIDERS: ATTEND Internal Medicine Hematology & Oncology
PROC: 30233N1 Transfusion of Nonautologous Red Blood Cells into Peripheral Vein, Percutaneous Approach (ICD-10-PCS; principal; 2022-06-19)
DX: N18.6 End stage renal disease (principal); D63.1 Anemia in chronic kidney disease; C50.612 Malignant neoplasm of axillary tail of left female breast; C79.51 Secondary malignant neoplasm of bone; E83.52 Hypercalcemia
CPT/HCPCS: 36430; 80053; 82248; 83615; 84100; 84550; 85025; 86850; 86900; 86901; 87040; 87086; 96360; J1642; P9016

== ENCOUNTER 2022-07-17 06:50 | Day surgery (SDC) | payer BC ==
[2022-07-13 07:55] VITALS: BMI 38.0
[2022-07-17 07:31] VITALS: BP 108/82; TEMP 98.4
[2022-07-17] MEDS ORDERED: Iopamidol 300 61% 50 ML VIAL FS ONE (12:05)
== END 2022-07-17 09:35 | disposition home or self-care (01) ==
LOC: SPEC 06:50
PROVIDERS: ATTEND Urology
PROC: 0T25X0Z Change Drainage Device in Kidney, External Approach (ICD-10-PCS; principal; 2022-07-17)
DX: Z46.6 Encounter for fitting and adjustment of urinary device (principal); N13.5 Crossing vessel and stricture of ureter without hydronephrosis; Z79.82 Long term (current) use of aspirin; Z79.899 Other long term (current) drug therapy; C50.612 Malignant neoplasm of axillary tail of left female breast; C79.51 Secondary malignant neoplasm of bone; C18.9 Malignant neoplasm of colon, unspecified; D63.1 Anemia in chronic kidney disease
CPT/HCPCS: 50431; 50435; 85025; C1729; Q9967

== ENCOUNTER 2022-08-01 08:32 | Day surgery (SDC) | payer BC ==
[2022-08-01] MEDS ORDERED: Acetaminophen 500 MG TAB PO SCH (09:30)
[2022-08-01] MEDS ORDERED: diphenhydrAMINE 25 MG CAP PO SCH (09:30)
[2022-08-01] MEDS ORDERED: Acetaminophen 500 MG TAB ONE (09:45)
[2022-08-01] MEDS ORDERED: diphenhydrAMINE 25 MG CAP ONE (09:45)
[2022-08-01 14:00] VITALS: BP 126/76; TEMP 98.5
== END 2022-08-01 12:35 | disposition home or self-care (01) ==
LOC: ONC/OP 08:32
PROVIDERS: ATTEND Internal Medicine Hematology & Oncology
PROC: 30233N1 Transfusion of Nonautologous Red Blood Cells into Peripheral Vein, Percutaneous Approach (ICD-10-PCS; principal; 2022-08-01)
DX: D64.9 Anemia, unspecified (principal); D69.6 Thrombocytopenia, unspecified
CPT/HCPCS: 36430; 86850; 86900; 86901; J1642; P9016

== ENCOUNTER → 2022-09-07 | Day surgery (SDC) | payer BC ==
[2022-09-06 15:33] VITALS: BMI 38.0
[2022-09-07 07:29] VITALS: BP 138/99; TEMP 98
== END | disposition home or self-care (01) ==
LOC: SPEC 06:40
PROVIDERS: ATTEND Urology
PROC: 0T25X0Z Change Drainage Device in Kidney, External Approach (ICD-10-PCS; principal; 2022-09-07)
DX: N13.1 Hydronephrosis with ureteral stricture, not elsewhere classified (principal); K80.20 Calculus of gallbladder without cholecystitis without obstruction; K83.8 Other specified diseases of biliary tract; K86.9 Disease of pancreas, unspecified; K44.9 Diaphragmatic hernia without obstruction or gangrene
CPT/HCPCS: 50430; 50431; 50435; C1729

== ENCOUNTER 2022-09-13 11:00 | Outpatient (CLI) | payer BC | END 2022-09-13 11:01 | LOC: PET 11:00 | PROVIDERS: ATTEND Internal Medicine Hematology & Oncology | DX: C50.612 Malignant neoplasm of axillary tail of left female breast (principal); C79.51 Secondary malignant neoplasm of bone | CPT/HCPCS: 78815; A9552 ==

== ENCOUNTER 2022-10-06 10:40 | Day surgery (SDC) | payer BC ==
[2022-10-06] MEDS ORDERED: Sodium Bicarbonate 2.5 MEQ/5 ML VIAL ONE (10:48)
[2022-10-06] MEDS ORDERED: Lidocaine 1% PF 5 ML VIAL ONE (10:48)
[2022-10-06] MEDS ORDERED: Iopamidol 300 61% 100 ML VIAL FS ONE (11:42)
[2022-10-06 11:58] VITALS: BP 127/77; TEMP 98.4
== END 2022-10-06 11:58 | disposition home or self-care (01) ==
LOC: SPEC 10:40
PROVIDERS: ATTEND Urology
PROC: 0T25X0Z Change Drainage Device in Kidney, External Approach (ICD-10-PCS; principal; 2022-10-06)
DX: T83.012A Breakdown (mechanical) of nephrostomy catheter, initial encounter (principal); N13.1 Hydronephrosis with ureteral stricture, not elsewhere classified; Y73.3 Surgical instruments, materials and gastroenterology and urology devices (including sutures) associated with adverse incidents
CPT/HCPCS: 50431; 50435; C1729; Q9967

== ENCOUNTER 2022-12-14 10:15 | Outpatient (CLI) | payer BC | END 2022-12-14 10:16 | disposition home or self-care (01) | LOC: PET 10:15 | PROVIDERS: ATTEND Internal Medicine Hematology & Oncology | DX: C50.612 Malignant neoplasm of axillary tail of left female breast (principal); C79.51 Secondary malignant neoplasm of bone; C78.7 Secondary malignant neoplasm of liver and intrahepatic bile duct; R94.8 Abnormal results of function studies of other organs and systems | CPT/HCPCS: 78815; A9552 ==

== ENCOUNTER → 2023-01-24 | Day surgery (SDC) | payer BC ==
[~2023-01-24] MED LIST changes: -FLU VACC QS2022-23(6MOS UP)/PF 60 MCG/0.5 ML SYRINGE IM ONE; +Lidocaine 1% PF 5 ML VIAL ONE; +Sodium Bicarbonate 2.5 MEQ/5 ML VIAL ONE
== END ==
LOC: SPEC 06:57
PROVIDERS: ATTEND Urology
PROC: 0T25X0Z Change Drainage Device in Kidney, External Approach (ICD-10-PCS; principal; 2023-01-24)
DX: N13.39 Other hydronephrosis (principal)
CPT/HCPCS: 50431; 50435

== ENCOUNTER 2023-04-12 06:44 | Day surgery (SDC) | payer BC ==
[2023-04-12 08:48] VITALS: BP 147/105; TEMP 97.6
== END 2023-04-12 09:25 | disposition home or self-care (01) ==
LOC: SPEC 06:44
PROVIDERS: ATTEND Urology
PROC: 0TB03ZX Excision of Right Kidney, Percutaneous Approach, Diagnostic (ICD-10-PCS; principal; 2023-04-12)
DX: K68.2 Retroperitoneal fibrosis (principal); N13.5 Crossing vessel and stricture of ureter without hydronephrosis
CPT/HCPCS: 50435

== ENCOUNTER 2023-04-18 09:30 | Outpatient (CLI) | payer BC | END 2023-04-18 09:31 | disposition home or self-care (01) | LOC: PET 09:30 | PROVIDERS: ATTEND Internal Medicine Hematology & Oncology | DX: C79.51 Secondary malignant neoplasm of bone (principal); C50.612 Malignant neoplasm of axillary tail of left female breast; R93.7 Abnormal findings on diagnostic imaging of other parts of musculoskeletal system | CPT/HCPCS: 78815; A9552 ==

== ENCOUNTER → 2023-05-11 | Day surgery (SDC) | payer BC ==
[~2023-05-11] MED LIST changes: +FLU VACC QS2023-24(6MOS UP)/PF 60 MCG/0.5 ML SYRINGE IM ONE; -Lidocaine 1% PF 5 ML VIAL ONE; -Sodium Bicarbonate 2.5 MEQ/5 ML VIAL ONE
== END ==
LOC: SPEC 06:59
PROVIDERS: ATTEND Urology
PROC: 0T25X0Z Change Drainage Device in Kidney, External Approach (ICD-10-PCS; principal; 2023-05-11)
DX: N13.1 Hydronephrosis with ureteral stricture, not elsewhere classified (principal)
CPT/HCPCS: 50431; 50435

== ENCOUNTER 2023-06-28 14:42 | Outpatient (CLI) | payer BC | END 2023-06-28 14:43 | disposition home or self-care (01) | LOC: ULT 14:42 | PROVIDERS: ATTEND Urology | DX: N13.39 Other hydronephrosis (principal) | CPT/HCPCS: 76770 ==

== ENCOUNTER 2024-04-11 10:20 | Outpatient (CLI) | payer BC | END 2024-04-14 12:00 | disposition home or self-care (01) | LOC: PET 10:20 | PROVIDERS: ATTEND Internal Medicine Hematology & Oncology | DX: C79.51 Secondary malignant neoplasm of bone (principal); C50.612 Malignant neoplasm of axillary tail of left female breast; K76.9 Liver disease, unspecified; M89.9 Disorder of bone, unspecified | CPT/HCPCS: 78815; A9552 ==

== ENCOUNTER 2025-02-08 13:24 | Inpatient (IN) | payer BC ==
[2025-02-08] MEDS ORDERED: Droperidol 5 MG/2 ML VIAL ONE (13:56)
[2025-02-08 14:24] LABS: #Basophils 0.04 10x3/uL (0.0-0.2); #Eosinophils Less than 0.03 10x3/uL (0.0-0.7); #Monocytes 0.35 10x3/uL (0.11-0.59); #Neutrophils 6.70 10x3/uL (1.40-6.50); %Basophils 0.5 % (0.0-1.0); %Eosinophils 0.1 % (0.0-10.0); %Lymphocytes 7.3 % (21.0-51.0); %Monocytes 4.6 % (0.0-10.0); %Neutrophils 87.2 % (42.0-75.0); Hematocrit 43.7 % (36.0-47.0); Hemoglobin 14.4 g/dL (12.0-16.0); Mean Corpuscular Hemoglobin 31.2 pg (27.0-31.0); Mean Corpuscular Volume 94.6 fL (78.0-98.0); Platelet Count 173 10x3/uL (130-400); Red Blood Cell (RBC) Count 4.62 mill/uL (4.20-5.40); White Blood Cell (WBC) Count 7.68 10x3/uL (4.8-10.8)
[2025-02-08 14:43] LABS: ALT (SGPT) 21 U/L (Less than 34); AST (SGOT) 63 U/L (11-34); Albumin 3.1 g/dL (3.1-4.5); Alkaline Phosphatase 104 U/L (40-110); Anion Gap 16 mmol/L (10-20); BUN (Urea Nitrogen) 17 mg/dL (9.8-20.1); Bilirubin, Total 1.4 mg/dL (0.3-1.2); Calc. Creatinine Clearance 0 mL/min (70-130); Calcium 8.5 mg/dL (7.8-10.44); Carbon Dioxide 21 mmol/L (23-31); Chloride 102 mmol/L (98-107); Globulin 3.6 g/dL (2.4-3.5); Glucose 138 mg/dL (80-115); Lipase 43 U/L (8-78); Potassium 4.4 mmol/L (3.5-5.1); Sodium 135 mmol/L (136-145)
[2025-02-08] MEDS ORDERED: Iopamidol-370 76% 500 ML MDV (1 ML CHARGE) ONE (15:54)
[2025-02-08] MEDS ORDERED: Ondansetron PF 4 MG/2 ML Vial ONE (17:29)
[2025-02-08] MEDS ORDERED: Melatonin 3 MG TAB PO PRN (18:32)
[2025-02-08] MEDS ORDERED: Acetaminophen 325 MG TAB PO PRN (18:33)
[2025-02-08 18:59] LABS: Bacteria/HPF None Seen HPF (None Seen); CAUTI Indications for Culture Immunosuppressed; Glucose, Urine (Dipstick) Normal (Negative); Leukocyte Negative Leu/uL (Negative); Protein, Urine (Dipstick) 20 mg/dL (Neg-Trace); WBC/HPF 0-3 HPF (0-3)
[2025-02-08 19:04] LABS: Specific Gravity, Urine Greater than 1.050 (1.002-1.036)
[2025-02-08 19:12] LABS: Urine Culture Reflex Yes Yes
[2025-02-08 20:07] VITALS: BMI 30.8
[2025-02-08] MEDS: Famotidine 20 MG TAB PO SCH (21:46)
[2025-02-09] MEDS: Pantoprazole 40 MG VIAL IVP SCH ×2 (00:20→00:33)
[2025-02-09 06:32] LABS: #Basophils Less than 0.03 10x3/uL (0.0-0.2); #Eosinophils Less than 0.03 10x3/uL (0.0-0.7); #Monocytes 0.61 10x3/uL (0.11-0.59); #Neutrophils 4.79 10x3/uL (1.40-6.50); %Basophils 0.3 % (0.0-1.0); %Eosinophils 0.2 % (0.0-10.0); %Lymphocytes 8.6 % (21.0-51.0); %Monocytes 10.3 % (0.0-10.0); %Neutrophils 80.4 % (42.0-75.0); Hematocrit 35.1 % (36.0-47.0); Hemoglobin 11.4 g/dL (12.0-16.0); Mean Corpuscular Hemoglobin 31.3 pg (27.0-31.0); Mean Corpuscular Volume 96.4 fL (78.0-98.0); Platelet Count 118 10x3/uL (130-400); Red Blood Cell (RBC) Count 3.64 mill/uL (4.20-5.40); White Blood Cell (WBC) Count 5.95 10x3/uL (4.8-10.8)
[2025-02-09 06:50] LABS: ALT (SGPT) 17 U/L (Less than 34); AST (SGOT) 44 U/L (11-34); Albumin 2.3 g/dL (3.1-4.5); Alkaline Phosphatase 78 U/L (40-110); Anion Gap 10 mmol/L (10-20); BUN (Urea Nitrogen) 16 mg/dL (9.8-20.1); Bilirubin, Total 0.8 mg/dL (0.3-1.2); Calc. Creatinine Clearance 105 mL/min (70-130); Calcium 7.3 mg/dL (7.8-10.44); Carbon Dioxide 25 mmol/L (23-31); Chloride 108 mmol/L (98-107); Globulin 2.7 g/dL (2.4-3.5); Glucose 112 mg/dL (80-115); Potassium 3.5 mmol/L (3.5-5.1); Sodium 139 mmol/L (136-145)
[2025-02-09] MEDS: Ondansetron PF 4 MG/2 ML Vial IVP PRN (08:40)
[2025-02-09] MEDS: Enoxaparin 40 MG (0.4 mL) SYRINGE SC SCH (08:43)
[2025-02-09] MEDS ORDERED: Benzocaine/Menthol 1 LOZ LOZ PO PRN (09:56)
[2025-02-09] MEDS ORDERED: MD-Gastroview 120 ML BOT ONE (10:52)
[2025-02-09 14:01] LABS: INR-International Normal Ratio 1.3; Prothrombin Time 16.8 sec (12.0-14.7)
[2025-02-09 14:02] LABS: PTT 28.8 sec (22.9-36.1)
[2025-02-09] MEDS: Ketorolac Tromethamine 30 MG (1 mL) VIAL IVP SCH (17:40)
[2025-02-10 06:01] LABS: #Basophils Less than 0.03 10x3/uL (0.0-0.2); #Eosinophils 0.04 10x3/uL (0.0-0.7); #Monocytes 0.71 10x3/uL (0.11-0.59); #Neutrophils 3.66 10x3/uL (1.40-6.50); %Basophils 0.4 % (0.0-1.0); %Eosinophils 0.8 % (0.0-10.0); %Lymphocytes 9.4 % (21.0-51.0); %Monocytes 14.5 % (0.0-10.0); %Neutrophils 74.7 % (42.0-75.0); Hematocrit 38.3 % (36.0-47.0); Hemoglobin 12.4 g/dL (12.0-16.0); Mean Corpuscular Hemoglobin 30.9 pg (27.0-31.0); Mean Corpuscular Volume 95.5 fL (78.0-98.0); Platelet Count 138 10x3/uL (130-400); Red Blood Cell (RBC) Count 4.01 mill/uL (4.20-5.40); White Blood Cell (WBC) Count 4.90 10x3/uL (4.8-10.8)
[2025-02-10 06:31] LABS: ALT (SGPT) 15 U/L (Less than 34); AST (SGOT) 37 U/L (11-34); Albumin 2.4 g/dL (3.1-4.5); Alkaline Phosphatase 72 U/L (40-110); Anion Gap 12 mmol/L (10-20); BUN (Urea Nitrogen) 22 mg/dL (9.8-20.1); Bilirubin, Total 0.7 mg/dL (0.3-1.2); Calc. Creatinine Clearance 89 mL/min (70-130); Calcium 7.5 mg/dL (7.8-10.44); Carbon Dioxide 26 mmol/L (23-31); Chloride 111 mmol/L (98-107); Globulin 2.6 g/dL (2.4-3.5); Glucose 104 mg/dL (80-115); Potassium 3.7 mmol/L (3.5-5.1); Sodium 145 mmol/L (136-145)
[2025-02-11 06:07] LABS: ALT (SGPT) 13 U/L (Less than 34); AST (SGOT) 38 U/L (11-34); Albumin 2.0 g/dL (3.1-4.5); Alkaline Phosphatase 59 U/L (40-110); Anion Gap 8 mmol/L (10-20); BUN (Urea Nitrogen) 19 mg/dL (9.8-20.1); Bilirubin, Total 0.5 mg/dL (0.3-1.2); Calc. Creatinine Clearance 101 mL/min (70-130); Calcium 7.2 mg/dL (7.8-10.44); Carbon Dioxide 27 mmol/L (23-31); Chloride 108 mmol/L (98-107); Globulin 2.4 g/dL (2.4-3.5); Glucose 87 mg/dL (80-115); Potassium 3.4 mmol/L (3.5-5.1); Sodium 140 mmol/L (136-145)
[2025-02-11 08:48] VITALS: TEMP 97.4
[2025-02-11 08:58] LABS: #Basophils 0.03 10x3/uL (0.0-0.2); #Eosinophils 0.18 10x3/uL (0.0-0.7); #Monocytes 0.35 10x3/uL (0.11-0.59); #Neutrophils 2.34 10x3/uL (1.40-6.50); %Basophils 0.9 % (0.0-1.0); %Eosinophils 5.4 % (0.0-10.0); %Lymphocytes 12.9 % (21.0-51.0); %Monocytes 10.5 % (0.0-10.0); %Neutrophils 70.0 % (42.0-75.0); Hematocrit 42.5 % (36.0-47.0); Hemoglobin 13.6 g/dL (12.0-16.0); Mean Corpuscular Hemoglobin 31.1 pg (27.0-31.0); Mean Corpuscular Volume 97.3 fL (78.0-98.0); Platelet Count 156 10x3/uL (130-400); Red Blood Cell (RBC) Count 4.37 mill/uL (4.20-5.40); White Blood Cell (WBC) Count 3.34 10x3/uL (4.8-10.8)
[2025-02-11 10:51] VITALS: BP 104/71
== END 2025-02-11 14:51 | disposition home or self-care (01) | DRG 436 ==
LOC: ERS 13:24 → SURG B 18:26 → OBSVTOIN 02-10 09:24
PROVIDERS: ADMIT Family Medicine; ATTEND Family Medicine
DX: C78.7 Secondary malignant neoplasm of liver and intrahepatic bile duct (principal); E87.1 Hypo-osmolality and hyponatremia; K76.6 Portal hypertension; K56.609 Unspecified intestinal obstruction, unspecified as to partial versus complete obstruction; R18.8 Other ascites; Z51.5 Encounter for palliative care; K21.9 Gastro-esophageal reflux disease without esophagitis; E11.9 Type 2 diabetes mellitus without complications; E78.5 Hyperlipidemia, unspecified; I10 Essential (primary) hypertension; E66.9 Obesity, unspecified; E78.00 Pure hypercholesterolemia, unspecified; K59.00 Constipation, unspecified; C50.912 Malignant neoplasm of unspecified site of left female breast; Z98.890 Other specified postprocedural states; Z90.710 Acquired absence of both cervix and uterus; Z79.82 Long term (current) use of aspirin; Z79.899 Other long term (current) drug therapy
CPT/HCPCS: 36415; 36416; 74018; 74177; 74250; 80053; 81001; 83605; 83690; 85025; 85610; 85730; 87040; 87086; 93005; 96361; 96365; 96372; 96375; 96376; G0378; J1650; J1790; J1885; J2060; J2405; J2470; J3010; J7120; Q9963; Q9967

== ENCOUNTER 2025-02-23 07:55 | Day surgery (SDC) | payer BC ==
[2025-02-23] MEDS ORDERED: Sodium Bicarbonate 2.5 MEQ/5 ML SDV ONE (08:00)
[2025-02-23] MEDS ORDERED: Lidocaine 1% w/Epinephrine 1:100K 20 ML VIAL ONE (08:00)
[2025-02-23] MEDS ORDERED: Lidocaine 1% PF 5 ML VIAL ONE (08:00)
== END 2025-02-23 09:20 | disposition home or self-care (01) ==
LOC: ULT 07:55
PROVIDERS: ATTEND Nurse Practitioner Family
PROC: 0W9G3ZZ Drainage of Peritoneal Cavity, Percutaneous Approach (ICD-10-PCS; principal; 2025-02-23)
DX: R18.8 Other ascites (principal); C50.612 Malignant neoplasm of axillary tail of left female breast; C79.51 Secondary malignant neoplasm of bone; E83.52 Hypercalcemia; I12.0 Hypertensive chronic kidney disease with stage 5 chronic kidney disease or end stage renal disease; N18.6 End stage renal disease; D63.1 Anemia in chronic kidney disease; Z17.0 Estrogen receptor positive status [ER+]; Z17.21 Progesterone receptor positive status; Z17.32 Human epidermal growth factor receptor 2 negative status; Z90.710 Acquired absence of both cervix and uterus; Z79.82 Long term (current) use of aspirin; Z79.899 Other long term (current) drug therapy
CPT/HCPCS: 49083

== ENCOUNTER 2025-03-05 13:01 | Inpatient (IN) | payer BC ==
[2025-03-05] MEDS ORDERED: cefTRIAXone (ROCEPHIN) 2 GM VIAL ONE (13:33)
[2025-03-05 13:36] LABS: Hematocrit 42.2 % (36.0-47.0); Hemoglobin 14.6 g/dL (12.0-16.0); Mean Corpuscular Hemoglobin 30.2 pg (27.0-31.0); Mean Corpuscular Volume 87.4 fL (78.0-98.0); Platelet Count 230 10x3/uL (130-400); Red Blood Cell (RBC) Count 4.83 mill/uL (4.20-5.40); White Blood Cell (WBC) Count 6.06 10x3/uL (4.8-10.8)
[2025-03-05 13:48] LABS: ALT (SGPT) 28 U/L (Less than 34); AST (SGOT) 46 U/L (11-34); Albumin 2.2 g/dL (3.1-4.5); Alkaline Phosphatase 292 U/L (40-110); Anion Gap 16 mmol/L (10-20); BUN (Urea Nitrogen) 37 mg/dL (9.8-20.1); Bilirubin, Total 1.2 mg/dL (0.3-1.2); Calc. Creatinine Clearance 0 mL/min (70-130); Calcium 8.4 mg/dL (7.8-10.44); Carbon Dioxide 15 mmol/L (23-31); Chloride 99 mmol/L (98-107); Globulin 3.5 g/dL (2.4-3.5); Glucose 107 mg/dL (80-115); Lipase 35 U/L (8-78); Magnesium 2.1 mg/dL (1.6-2.6); Potassium 3.5 mmol/L (3.5-5.1); Sodium 126 mmol/L (136-145)
[2025-03-05] MEDS ORDERED: Iopamidol-370 76% 500 ML MDV (1 ML CHARGE) ONE (14:06)
[2025-03-05 14:18] LABS: Anisocytosis SLIGHT = 6-15 cells HPF (0-5); Burr Cells MARKED = >16 cells HPF (0-1); Nucleated RBC (Manual Ct) 1 % (0); Platelet Adequacy Comment Platelets Normal; Poikilocytosis MARKED = >30 cells HPF (0-5); Polychromasia SLIGHT = 2-3 cells HPF (0-2); Smudge Cells 6.2 %; Toxic Granulation SLIGHT
[2025-03-05 18:30] LABS: CAUTI Indications for Culture Alt mental st,lethar; Glucose, Urine (Dipstick) Normal (Negative); Leukocyte 25 Leu/uL (Negative); Protein, Urine (Dipstick) 10 mg/dL (Neg-Trace); Specific Gravity, Urine 1.039 (1.002-1.036)
[2025-03-05 18:31] LABS: Bacteria/HPF 1+ HPF (None Seen)
[2025-03-05 18:33] LABS: Urine Culture Reflex Yes Yes
[2025-03-05 19:56] VITALS: BMI 28.1
[2025-03-05] MEDS: Lidocaine 1% (PF) 30 ML VIAL IJ SCH (20:38)
[2025-03-05 23:05] LABS: RBC Count-Automated (BF) 1497 /cu.mm; WBC/Nucleated-Auto (BF) 38 /cu.mm
[2025-03-05] MEDS: cefTRIAXone\\ROCEPHIN 2 GM in Sodium Chloride 0.9% 100 ML IVPB SCH (23:24)
[2025-03-05] MEDS: Albumin 25% 25 GM (100 mL) BOT IVPB SCH (23:24)
[2025-03-06 00:19] LABS: BF Segmented Neutrophils 24 %; Cell Count Non Hematic 46 %
[2025-03-06 02:05] LABS: INR-International Normal Ratio 1.5; Prothrombin Time 18.2 sec (12.0-14.7)
[2025-03-06 02:06] LABS: PTT 28.6 sec (22.9-36.1)
[2025-03-06 06:58] LABS: Hematocrit 35.4 % (36.0-47.0); Hemoglobin 12.4 g/dL (12.0-16.0); Mean Corpuscular Hemoglobin 30.8 pg (27.0-31.0); Mean Corpuscular Volume 88.1 fL (78.0-98.0); Platelet Count 144 10x3/uL (130-400); Red Blood Cell (RBC) Count 4.02 mill/uL (4.20-5.40); White Blood Cell (WBC) Count 3.67 10x3/uL (4.8-10.8)
[2025-03-06 07:20] LABS: ALT (SGPT) 21 U/L (Less than 34); AST (SGOT) 38 U/L (11-34); Albumin 2.2 g/dL (3.1-4.5); Alkaline Phosphatase 212 U/L (40-110); Anion Gap 16 mmol/L (10-20); BUN (Urea Nitrogen) 35 mg/dL (9.8-20.1); Bilirubin, Total 0.9 mg/dL (0.3-1.2); Calc. Creatinine Clearance 65 mL/min (70-130); Calcium 7.8 mg/dL (7.8-10.44); Carbon Dioxide 15 mmol/L (23-31); Chloride 102 mmol/L (98-107); Globulin 2.6 g/dL (2.4-3.5); Glucose 77 mg/dL (80-115); Potassium 3.3 mmol/L (3.5-5.1); Sodium 130 mmol/L (136-145)
[2025-03-06 07:39] LABS: Anisocytosis SLIGHT = 6-15 cells HPF (0-5); Burr Cells MODERATE= 6-15 cells HPF (0-1); Nucleated RBC (Manual Ct) 2 % (0); Platelet Adequacy Comment Platelets Normal; Poikilocytosis SLIGHT = 6-15 cells HPF (0-5); Polychromasia SLIGHT = 2-3 cells HPF (0-2); Smudge Cells 11.8 %; Toxic Granulation SLIGHT
[2025-03-06] MEDS: Calcitriol 0.25 MCG CAP PO SCH (09:34)
[2025-03-06] MEDS: Aspirin 81 mg Enteric Coated Tablet PO SCH (09:34)
[2025-03-06] MEDS: Pantoprazole 40 MG DR.TAB PO SCH (09:34)
[2025-03-06] MEDS: Folic Acid/Vit B Comp W-C PO SCH (09:35)
[2025-03-06] MEDS: Enoxaparin 40 MG (0.4 mL) SYRINGE SC SCH (09:35)
[2025-03-06] MEDS ORDERED: Sodium Bicarbonate 2.5 MEQ/5 ML SDV ONE (11:48)
[2025-03-06] MEDS ORDERED: Lidocaine 1% w/Epinephrine 1:100K 20 ML VIAL ONE (11:48)
[2025-03-06] MEDS ORDERED: cefTRIAXone\\ROCEPHIN 2 GM in Sodium Chloride 0.9% 100 ML IVPB SCH (13:00)
[2025-03-06 13:01] VITALS: BMI 28.1
[2025-03-06] MEDS: Albumin 25% 25 GM (100 mL) BOT IVPB SCH (15:11)
[2025-03-06] MEDS ORDERED: Aluminum & Magnesium Hydroxide 60 ML, diphenhydrAMINE 150 MG, Lidocaine 2% Viscous Solu... SSW SCH (17:00)
[2025-03-06] MEDS: [UNRECOGNIZED DRUG - OTHER] SSW SCH (17:38)
[2025-03-06] MEDS: Lidocaine Viscous Sol 2% 15 ml UD Cup SSP SCH (21:44)
[2025-03-07 04:43] LABS: ALT (SGPT) 18 U/L (Less than 34); AST (SGOT) 34 U/L (11-34); Albumin 2.2 g/dL (3.1-4.5); Alkaline Phosphatase 174 U/L (40-110); Anion Gap 19 mmol/L (10-20); BUN (Urea Nitrogen) 33 mg/dL (9.8-20.1); Bilirubin, Total 1.0 mg/dL (0.3-1.2); Calc. Creatinine Clearance 71 mL/min (70-130); Calcium 7.3 mg/dL (7.8-10.44); Carbon Dioxide 12 mmol/L (23-31); Chloride 104 mmol/L (98-107); Globulin 2.2 g/dL (2.4-3.5); Glucose 82 mg/dL (80-115); Potassium 3.1 mmol/L (3.5-5.1); Sodium 132 mmol/L (136-145)
[2025-03-07 04:52] LABS: Hematocrit 34.9 % (36.0-47.0); Hemoglobin 12.1 g/dL (12.0-16.0); Mean Corpuscular Hemoglobin 30.5 pg (27.0-31.0); Mean Corpuscular Volume 87.9 fL (78.0-98.0); Platelet Count 110 10x3/uL (130-400); Red Blood Cell (RBC) Count 3.97 mill/uL (4.20-5.40); White Blood Cell (WBC) Count 3.38 10x3/uL (4.8-10.8)
[2025-03-07 05:42] LABS: Burr Cells SLIGHT = 2-5 cells HPF (0-1); Nucleated RBC (Manual Ct) 3 % (0); Platelet Adequacy Comment Platelets Decreased; Polychromasia SLIGHT = 2-3 cells HPF (0-2); Smudge Cells 8.9 %
[2025-03-07] MEDS: Potassium Chloride 20 MEQ in Premix 2 BAG IVPB SCH (08:17)
[2025-03-07 13:19] VITALS: BP 104/74; TEMP 98
== END 2025-03-07 17:52 | disposition home or self-care (01) | DRG 432 ==
LOC: SUATTDRO 13:01 → ERS 13:01 → T4-B 18:25 → OBSVTOIN 03-06 15:53
PROVIDERS: ADMIT Emergency Medicine; ATTEND Emergency Medicine
PROC: 30233J1 Transfusion of Nonautologous Serum Albumin into Peripheral Vein, Percutaneous Approach (ICD-10-PCS; 2025-03-05)
PROC: 3E03329 Introduction of Other Anti-infective into Peripheral Vein, Percutaneous Approach (ICD-10-PCS; 2025-03-05)
PROC: 02HV33Z Insertion of Infusion Device into Superior Vena Cava, Percutaneous Approach (ICD-10-PCS; 2025-03-05)
PROC: 0W9G3ZZ Drainage of Peritoneal Cavity, Percutaneous Approach (ICD-10-PCS; principal; 2025-03-06)
DX: K74.60 Unspecified cirrhosis of liver (principal); K76.7 Hepatorenal syndrome; C78.7 Secondary malignant neoplasm of liver and intrahepatic bile duct; K56.600 Partial intestinal obstruction, unspecified as to cause; C78.6 Secondary malignant neoplasm of retroperitoneum and peritoneum; E87.1 Hypo-osmolality and hyponatremia; N17.9 Acute kidney failure, unspecified; J90 Pleural effusion, not elsewhere classified; R18.8 Other ascites; E86.0 Dehydration; E87.6 Hypokalemia; E78.5 Hyperlipidemia, unspecified; I10 Essential (primary) hypertension; I95.9 Hypotension, unspecified; R53.81 Other malaise; C50.911 Malignant neoplasm of unspecified site of right female breast; E11.9 Type 2 diabetes mellitus without complications; Z90.710 Acquired absence of both cervix and uterus; Z93.6 Other artificial openings of urinary tract status; Z90.11 Acquired absence of right breast and nipple; Z79.82 Long term (current) use of aspirin; Z79.899 Other long term (current) drug therapy; Z86.018 Personal history of other benign neoplasm; Z90.711 Acquired absence of uterus with remaining cervical stump
CPT/HCPCS: 36415; 36416; 49083; 51701; 71045; 71275; 74177; 76705; 80053; 81001; 83605; 83690; 83735; 83880; 84484; 85025; 85060; 85610; 85730; 86850; 86900; 86901; 87040; 87070; 87086; 87205; 89051; 93005; 94760; 96365; 96372; 96375; 96376; G0378; J0696; J1650; J3480; J7120; P9047; Q0162; Q9967